=== PATIENT | female | born 1995 | race Two or more races ===

== ENCOUNTER 2024-01-06 14:51 | Outpatient (AMBR) | payer MEDICAID, SELFPAY | END 2024-01-09 23:59 | disposition home or self-care (01) | LOC: HODLAC 14:51 | DX: Z39.1 Encounter for care and examination of lactating mother (principal) ==

== ENCOUNTER 2024-05-09 14:04 | Outpatient (AMB) | payer MEDICAID, SELFPAY ==
[2024-05-09 14:12] VITALS: BP 131/74; PULSE 97; RESP 18; TEMP 36.3; O2SAT 98; BMI 33.3
--- NOTE | 2024-05-09 14:12 | GSCOFFNT_ITS ---
Vital Signs - [facility] 05/09/24 14:12 Height 1.65 m Height Method Stated Weight 90.804 kg Weight Measurement Method Standing Scale BMI 33.3 BP 131/74 H Blood Pressure Source Automatic Cuff Blood Pressure Location Left Upper Arm Position Sitting Respiration 18 Pulse 97 Pulse Source Monitor Temp 97.3 F Temp Source Temporal Artery Scan Pulse Oximetry (%) 98 Oxygen Delivery Method Room Air Med/Allergies Allergies & Medications Allergies No Known Allergies Allergy (Verified 05/09/24 14:13) Medication Reconciliation prenat.vits,denis,[id number] 1 tab PO QDAY 12/09/23 [History Confirmed 05/09/24] docusate sodium 100 mg capsule (Colace) 100 mg PO BID #60 caps 12/16/23 [Rx Confirmed 05/09/24] ibuprofen 800 mg tablet 800 mg PO Q6H PRN pain #120 tabs 12/16/23 [Rx Confirmed 05/09/24] lanolin 50 % topical ointment 1 applic topical TID PRN skin irritation #15 tubes 12/16/23 [Rx Confirmed 05/09/24] MA Intake Visit Data Collection New Patient or Established: Established Patient (seen at [facility] within 3 years) Seen by Clinical Staff ONLY (RN/MA): No Reason for Visit:: UMBELICAL HERNIA Pain Present Currently: No PCP or OBGYN visit in last 3 months: Yes Hx Now: No Do You Feel Safe at Home: Yes Authorities Contacted: N/A Smoking Status Smoking Status: Never smoker Immunization / Flu Flu Vaccine in the Last 12 Months: No Flu Vaccine Exclusion Criteria: No Exclusion Criteria Past Medical History Past Medical History NEUROLOGIC: Negative Neurological Disorders, Cerebrovascular Accident, Transient Ischemic Attacks (TIA), Dementia, Alzheimer's Disease, Parkinson's Disease, Brain Tumor, Meningitis, Seizures, Epilepsy, Multiple Sclerosis, Cerebral Palsy, Amyotrophic Lateral Sclerosis (ALS/Kelly Gehrig's), Guillain-Sulphur Syndrome, Spina Bifida, Paralysis, Peripheral Neuropathy, Garcias's Palsy, Subdural Hematoma, Migraine, Head Trauma, Spinal Cord Injury or Traumatic Brain Injury CARDIAC: Negative Cardiac Disorders, Myocardial Infarction, Cardiac Arrhythmia, Atrial Fibrillation, Angina, Heart Murmur, Coronary Artery Disease, Atherosclerotic Heart Disease, Peripheral Vascular Disease, Hypercholesterolemia, Aneurysm, Congestive Heart Failure, Congenital Heart Disease, Valvular Heart Disease, Rheumatic Fever, Cardiomyopathy, Edema, Pericarditis, Cellulitis, Deep Vein Thrombosis, Hypertension, Hypotension or Varicose Veins RESPIRATORY: Negative Chronic Obstructive Pulmonary Disease (COPD), Asthma, Bronchitis, Emphysema, Pneumonia, Pulmonary Fibrosis, Cystic Fibrosis, Tuberculosis, Pulmonary Embolism, Pulmonary Edema or Sleep Apnea GASTROINTESTINAL: Negative Gastrointestinal Disorders, Hepatitis, Cirrhosis, Pancreatitis, Celiac Disease, Gall Bladder Disease, Gastrointestinal Bleed, Esophageal Varices, Becker's Esophagus, Colitis, Ulcerative Colitis, Diverticulitis, Diverticulosis, Ulcer, Colorectal Cancer, Irritable Bowel, Crohn's Disease, Obstructive Bowel, Hiatal Hernia, Hemorrhoids, Gastroesophageal Reflux Disease or Obesity GENITOURINARY: Negative Genitourinary Disorders, Renal Disease, Kidney Stones, Polycystic Kidney Disease, Neurogenic Bladder, Inguinal Hernia, Dialysis, Prostate Cancer or Benign Prostatic Hyperplasia REPRODUCTIVE: Positive Previous Pregnancies (x3); Negative Breast Cancer, Endometriosis, Genital Herpes, Gonorrhea, Pelvic Inflammatory Disease, Syphilis, Testicular Cancer or Uterine Prolapse MUSCULOSKELETAL: Negative Muscular Dystrophy, Myasthenia Gravis, Marfan's Syndrome, Bone Cancer, Arthritis, Rheumatoid Arthritis, Osteoporosis, Degenerative Disk Disease, Gout, Scoliosis, Carpal Tunnel Syndrome, Fibromyalgia, Fractures, Degenerative Joint Disease, Osteomyelitis or Poliovirus ENT: Negative Cataracts, Glaucoma, Blind, Retinal Detachment, Macular Degeneration, Ear Infection, Deafness, Head Trauma or Eye Prosthesis ENDOCRINE: Negative Endocrine Disorders, Diabetes Mellitus Type 1, Diabetes Mellitus Type 2, Hypoglycemia, Yoseph's Syndrome, Dariusz's Disease, Hyperthyroidism, Hypothyroidism, Parathyroid Disease, Pituitary Disease, Systemic Lupus Erythematosus, Syndrome of Inappropriate Antidiuretic Hormone (SIADH), Adrenal Disease or Graves' Disease HEMATOLOGIC: Negative Blood Disorders, Anemia, Leukemia, Hemophilia, Thalassemia, Sickle Cell Disease or Clotting Problems PSYCHO/SOCIAL: Negative Psychiatric Problems, Schizophrenia, Recreational Drug Use, Bipolar Disorder, Depression, Anxiety, Behavior Problems, Self-Mutilation, Attention Deficit Disorder, Attention Deficit Hyperactivity Disorder, Depression, Post Traumatic Stress Disorder or Eating Disorder OTHER HISTORY: Positive Hospitalization; Negative Down Syndrome, Autism, Developmental Delay, Shingles, Falls, Blood Transfusions, Blood Transfusion Reaction, Anesthesia Reactions, Organ Orantes splant, Chemotherapy, Radiation Therapy, Hyperbaric Therapy, MRSA, VRSA, Vancomycin-Resistant Enterococci, Human Immunodeficiency Virus (HIV), Chicken Pox, Measles, Mumps, Rubella (Malagasy Measles), Pertussis, Clostridium Difficile, Cancer, Breast Cancer, Cervical Cancer, Colorectal Cancer, Lung Cancer, Ovarian Cancer, Prostate Cancer or Testicular Cancer Family History FAMILY HISTORY: Positive Family Cardiac Disorders (mother- htn) and Family Cancer (mother- breast ca); Negative Family Psychiatric Problems, Family Respiratory Disorders, Family Gastrointestinal Problems, Family Surgery or Family Anesthesia Reaction Surgical History SURGICAL: Negative Cardiac Surgery, Open Heart Surgery, Coronary Artery Bypass Graft, Valve Replacement, Vascular Surgery, Coronary Stent, Cardiac Catheterization, Pacemaker, Angiogram, Auto Implanted Cardiovert Defib, Carotid Endarterectomy, Endocrine Surgery, Thyroidectomy, Ear Surgery, Tympanostomy Tube, Eye Surgery, Nose Surgery, Oral Surgery, Tonsillectomy, Adenoidectomy, Cochlear Implant, Corneal Transplant, Throat Surgery, Abdominal Surgery, Tracheostomy, Gastric Bypass Surgery, Gastrostomy, Bowel Surgery, Nephrectomy, Transurethral Resection, Joint Replacement, Amputation, Open Reduction Internal Fixation, Arthroscopy, Neurologic Surgery, Brain Shunt, Mastectomy, Lumpectomy, Hysterectomy, Tubal Ligation, Section, Vasectomy or Organ Transplant Social History SMOKING STATUS: Smoking status: Never smoker SECOND HAND EXPOSURE: second hand exposure: No ALCOHOL: Alcohol Intake: Never ALCOHOL FREQUENCY: Alcohol Intake Frequency: holidays/special occasions only HOUSING: Housing: Apartment LIVES WITH: Lives With: Children and Significant Other HPI HPI Narrative 28F s/p lap appendectomy 08/2022 for gangrenous appendicitis, who gave 12/2023 here for a symptomatic umbilical hernia. Pt reports she has noted it for some time and it seems to have increased in size, as the area associated with discomfort has increased. Pt has noted episodes of nausea/vomiting related to the hernia as well. She denies any skin changes, has no other complaints PMH: Gangrenous appendicitis PSHx: Lap appendectomy 08/2022 Meds: vitamins Allergies: NKDA Social hx: Nonsmoker ROS Review of Systems Systems Reviewed: All systems reviewed, normal except as documented Objective/Exam General General Appearance: alert, cooperative and well groomed Resp Respiratory exam: Absent respiratory distress Abdominal Abdominal exam: Present soft and hernia (reducible umbilical hernia with no erythema, no fluctuance or tenderness); Absent distention or tenderness Assessment & Plan Diagnosis / Problem List (1) Umbilical hernia: Status: Acute Assessment & Plan: 28F s/p lap appendectomy 08/2022 for gangrenous appendicitis, followed by a healthy and vaginal 12/2023 here for follow up of symptomatic umbilical hernia. I explained that US will be helpful to determine the exact size of the hernia and that depending on the result we can discuss either open repair with mesh or consider referral for laparoscopic repair. Pt expressed understanding and is agreeable to this plan Orders: Orders US abdomen limited Today K42.9 - Umbilical hernia without obstruction or gangrene Office Procedures GNS Level of Care Nursing/Assessment Patient Status: Established Patient Nursing Assessment/Reassesment: Medication Reconciliation, Update PMH in EMR and Vital Signs Coordination of Care: Complex Care and Chronic Disease 1-5, Consent,records obtained, informed consent, Education Simp Pt/Fam, Results/Orders obtained and Staff clarify orders Established Patient Charge Established Patient Point Assignment: 90 Established Patient Point Charge: EP Level 3 (80-115) Patient Portal Questionaires Social History Living Situation History Housing: Apartment Tobacco History Smoking Status: Never smoker Second Hand Smoke Exposure: No Alcohol History Alcohol Intake: Never Alcohol Intake Frequency: holidays/special occasions only Domestic Abuse History Do You Feel Safe at Home: Yes Review of Systems Report any current symptoms Only answer those that you have currently: Past Medical History Past Medical History Have you ever been diagnosed with any of the following: Neurological Problems Cerebrovascular Accident (CVA): No Transient Ischemic Attacks (TIA): No Dementia: No Alzheimer's Disease: No Parkinson's Disease: No Brain Tumor: No Meningitis: No Seizures: No Epilepsy: No Multiple Sclerosis: No Cerebral Palsy: No Amyotrophic Lateral Sclerosis (ALS/Kelly Gehrig's): No Guillain-Sulphur Syndrome: No Spina Bifida: No Paralysis: No Peripheral Neuropathy: No Garcias's Palsy: No Subdural Hematoma: No Migraine: No Head Trauma: No Spinal Cord Injury: No Traumatic Brain Injury: No Cardiology Problems Myocardial Infarction: No Cardiac Arrhythmia: No Atrial Fibrillation: No Angina: No Heart Murmur: No Coronary Artery Disease: No Atherosclerotic Heart Disease: No Peripheral Vascular Disease: No Hypercholesterolemia: No Aneurysm: No Congestive Heart Failure: No Congenital Heart Disease: No Valvular Heart Disease: No Rheumatic Fever: No Cardiomyopathy: No Edema: No Pericarditis: No Cellulitis: No Deep Vein Thrombosis: No Hypertension: No Hypotension: No Varicose Veins: No Respiratory Problems Chronic Obstructive Pulmonary Disease (COPD): No Asthma: No Bronchitis: No Emphysema: No Pneumonia: No Pulmonary Fibrosis: No Tuberculosis: No Pulmonary Embolism: No Pulmonary Edema: No Sleep Apnea: No Stomache/Intestinal Problems Hepatitis: No Cirrhosis: No Pancreatitis: No Celiac Disease: No Gall Bladder Disease: No Gastrointestinal Bleed: No Esophageal Varices: No Becker's Esophagus: No Colitis: No Ulcerative Colitis: No Diverticulitis: No Diverticulosis: No Ulcer: No Colorectal Cancer: No Irritable Bowel: No Crohn's Disease: No Obstructive Bowel: No Hiatal Hernia: No Hemorrhoids: No Gastroesophageal Reflux Disease: No Obesity: No Genital/Urinary Problems Renal Disease: No Kidney Stones: No Polycystic Kidney Disease: No Neurogenic Bladder: No Inguinal Hernia: No Dialysis: No Prostate Cancer: No Benign Prostatic Hyperplasia: No Reproductive Problems Breast Cancer: No Endometriosis: No Genital Herpes: No Gonorrhea: No Pelvic Inflammatory Disease: No Previous Pregnancies: Yes (x3) Syphilis: No Testicular Cancer: No Uterine Prolapse: No Musculoskeletal Problems Muscular Dystrophy: No Myasthenia Gravis: No Marfan's Syndrome: No Bone Cancer: No Arthritis: No Rheumatoid Arthritis: No Osteoporosis: No Degenerative Disk Disease: No Gout: No Scoliosis: No Carpal Tunnel Syndrome: No Fibromyalgia: No Fractures: No Degenerative Joint Disease: No Osteomyelitis: No Poliovirus: No Head,Eye,Nose,Throat Problems Cataracts: No Glaucoma: No Blind: No Retinal Detachment: No Macular Degeneration: No Chronic Ear Infections: No Deafness: No Eye Prosthesis: No Endocrine Problems Diabetes Mellitus Type 1: No Diabetes Mellitus Type 2: No Hypoglycemia: No Yoseph's Syndrome: No [place]'s Disease: No Hyperthyroidism: No Hypothyroidism: No Parathyroid Disease: No Pituitary Disease: No Systemic Lupus Erythematosus: No Syndrome of Inappropriate Antidiuretic Hormone: No Adrenal Disease: No Graves' Disease: No Blood Problems Anemia: No Leukemia: No Hemophilia: No Thalassemia: No Sickle Cell Disease: No Clotting Problems: No Psychologic Problems Schizophrenia: No Recreational Drug Use: No Bipolar Disorder: No Depression: No Anxiety: No Behavior Problems: No Self-Mutilation: No Attention Deficit Disorder: No Attention Deficit Hyperactivity Disorder: No Depression: No Post Traumatic Stress Disorder: No Eating Disorder: No Other Problems Hospitalization: Yes Down Syndrome: No Autism: No Developmental Delay: No Shingles: No Falls: No Blood Transfusions: No Blood Transfusion Reaction: No Anesthesia Reactions: No Organ Transplant: No Chemotherapy: No Radiation Therapy: No Hyperbaric Therapy: No MRSA: No VRSA: No Vancomycin-Resistant Enterococci: No Human Immunodeficiency Virus (HIV): No Chicken Pox: No Measles: No Mumps: No Rubella (Malagasy Measles): No Pertussis: No Clostridium Difficile: No Cancer: No Cervical Cancer: No Lung Cancer: No Ovarian Cancer: No Surgical History Carotid Endarterectomy: No Coronary Artery Bypass Graft: No Valve Replacement: No Hysterectomy: No Pacemaker: No Thyroidectomy: No
== END 2024-05-09 14:28 | disposition home or self-care (01) ==
LOC: HODSRG 14:04
PROVIDERS: PCP Nurse Practitioner Women's Health; Referring Provider Nurse Practitioner Women's Health; Supervising Provider Surgery; Visit Provider Surgery
DX: K42.9 Umbilical hernia without obstruction or gangrene (principal)
CPT/HCPCS: 99213; G0463

== ENCOUNTER 2024-05-11 09:08 | Outpatient (AMB) | payer MEDICAID, SELFPAY ==
[2024-05-11 09:33] VITALS: BP 107/72; PULSE 89; RESP 16; TEMP 35.7; O2SAT 98; BMI 33.0
--- NOTE | 2024-05-11 09:33 | AMB.GYNCLNOT ---
Vital Signs 05/11/24 09:33 Height 1.65 m Height Method Stated Weight 89.925 kg Weight Measurement Method Standing Scale BMI 33.0 BP 107/72 Blood Pressure Source Automatic Cuff Blood Pressure Location Left Upper Arm Position Sitting Respiration 16 Pulse 89 Pulse Source Monitor Temp 96.3 F L Temp Source Oral Pulse Oximetry (%) 98 Oxygen Delivery Method Room Air Allergies/Home Meds Allergies & Medications Allergies No Known Allergies Allergy (Verified 05/16/24 11:21) Intake Visit Data Collection New Patient or Established: Established Patient (seen at [facility] within 3 years) Reason for Visit:: Positive home test, absence of menstrual periods since giving 5 months ago Seen by Clinical Staff ONLY (RN/MA): No Chief Privacy Officer Required: No Do You Feel Safe at Home: Yes Authorities Contacted: N/A PCP or OBGYN visit in last 3 months: Yes Date of Last PCP or OBGYN visit: 05/09/24 Hx Now: No Are you currently on any form of Control: No Pain Present Currently: No Pain Scale Used: Wei-Iqbal/Numerical Pain scale:: 0 Smoking Status Smoking Status: Never smoker 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 1. Little interest or pleasure in doing things: not at all 2. Feeling down, depressed, or hopeless: not at all Total score: 0 PHQ-9 3. Trouble falling or staying asleep, or sleeping too much: Not at all 4. Feeling tired or having little energy: Not at all 5. Poor appetite or overeating: Not at all 6. Feeling bad about yourself - or that you are a failure or have let yourself or your family down: Not at all 7. Trouble concentrating on things, such as reading the newspaper or watching television: Not at all 8. Moving or speaking so slowly that other people could have noticed? - Or the opposite - being so fidgety or restless that you have been moving around a lot more than usual: not at all 9. Thoughts that you would be better off or of hurting yourself in some way: Not at all Total score: 0 If you checked off any problems, how difficult have these problems made it for you to do your work, take care of things at home, or get along with other people?: not difficult at all Source: Developed by Drs. Urban Gardner, Julianne Jett, Jacob Lucero and colleagues, with an educational bruce from [employer]. 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 at Home: Yes Past Medical History Past Medical History Have you ever been diagnosed with any of the following: Neurological Problems Cerebrovascular Accident (CVA): No Transient Ischemic Attacks (TIA): No Dementia: No Alzheimer's Disease: No Parkinson's Disease: No Brain Tumor: No Meningitis: No Seizures: No Epilepsy: No Multiple Sclerosis: No Cerebral Palsy: No Amyotrophic Lateral Sclerosis (ALS/Kelly Gehrig's): No Guillain-[place] Syndrome: No Spina Bifida: No Paralysis: No Peripheral Neuropathy: No Garcias's Palsy: No Subdural Hematoma: No Migraine: No Head Trauma: No Spinal Cord Injury: No Traumatic Brain Injury: No Cardiology Problems Myocardial Infarction: No Cardiac Arrhythmia: No Atrial Fibrillation: No Angina: No Heart Murmur: No Coronary Artery Disease: No Atherosclerotic Heart Disease: No Peripheral Vascular Disease: No Hypercholesterolemia: No Aneurysm: No Congestive Heart Failure: No Congenital Heart Disease: No Valvular Heart Disease: No Rheumatic Fever: No Cardiomyopathy: No Edema: No Pericarditis: No Cellulitis: No Deep Vein Thrombosis: No Hypertension: No Hypotension: No Varicose Veins: No Respiratory Problems Chronic Obstructive Pulmonary Disease (COPD): No Asthma: No Bronchitis: No Emphysema: No Pneumonia: No Pulmonary Fibrosis: No Tuberculosis: No Pulmonary Embolism: No Pulmonary Edema: No Sleep Apnea: No Stomache/Intestinal Problems Hepatitis: No Cirrhosis: No Pancreatitis: No Celiac Disease: No Gall Bladder Disease: No Gastrointestinal Bleed: No Esophageal Varices: No Becker's Esophagus: No Colitis: No Ulcerative Colitis: No Diverticulitis: No Diverticulosis: No Ulcer: No Colorectal Cancer: No Irritable Bowel: No Crohn's Disease: No Obstructive Bowel: No Hiatal Hernia: No Hemorrhoids: No Gastroesophageal Reflux Disease: No Obesity: No Genital/Urinary Problems Renal Disease: No Kidney Stones: No Polycystic Kidney Disease: No Neurogenic Bladder: No Inguinal Hernia: No Dialysis: No Prostate Cancer: No Benign Prostatic Hyperplasia: No Reproductive Problems Breast Cancer: No Endometriosis: No Genital Herpes: No Gonorrhea: No Pelvic Inflammatory Disease: No Previous Pregnancies: Yes (x3) Syphilis: No Testicular Cancer: No Uterine Prolapse: No Musculoskeletal Problems Muscular Dystrophy: No Myasthenia Gravis: No Marfan's Syndrome: No Bone Cancer: No Arthritis: No Rheumatoid Arthritis: No Osteoporosis: No Degenerative Disk Disease: No Gout: No Scoliosis: No Carpal Tunnel Syndrome: No Fibromyalgia: No Fractures: No Degenerative Joint Disease: No Osteomyelitis: No Poliovirus: No Head,Eye,Nose,Throat Problems Cataracts: No Glaucoma: No Blind: No Retinal Detachment: No Macular Degeneration: No Chronic Ear Infections: No Deafness: No Eye Prosthesis: No Endocrine Problems Diabetes Mellitus Type 1: No Diabetes Mellitus Type 2: No Hypoglycemia: No Yoseph's Syndrome: No [place]'s Disease: No Hyperthyroidism: No Hypothyroidism: No Parathyroid Disease: No Pituitary Disease: No Systemic Lupus Erythematosus: No Syndrome of Inappropriate Antidiuretic Hormone: No Adrenal Disease: No Graves' Disease: No Blood Problems Anemia: No Leukemia: No Hemophilia: No Thalassemia: No Sickle Cell Disease: No Clotting Problems: No Psychologic Problems Schizophrenia: No Recreational Drug Use: No Bipolar Disorder: No Depression: No Anxiety: No Behavior Problems: No Self-Mutilation: No Attention Deficit Disorder: No Attention Deficit Hyperactivity Disorder: No Depression: No Post Traumatic Stress Disorder: No Eating Disorder: No Other Problems Hospitalization: Yes Down Syndrome: No Autism: No Developmental Delay: No Shingles: No Falls: No Blood Transfusions: No Blood Transfusion Reaction: No Anesthesia Reactions: No Organ Transplant: No Chemotherapy: No Radiation Therapy: No Hyperbaric Therapy: No MRSA: No VRSA: No Vancomycin-Resistant Enterococci: No Human Immunodeficiency Virus (HIV): No Chicken Pox: No Measles: No Mumps: No Rubella ([place] Measles): No Pertussis: No Clostridium Difficile: No Cancer: No Cervical Cancer: No Lung Cancer: No Ovarian Cancer: No Surgical History Carotid Endarterectomy: No Coronary Artery Bypass Graft: No Valve Replacement: No Hysterectomy: No Pacemaker: No Thyroidectomy: No History of Present Illness [facility] Narrative Tasha Gonzalez, a mother of a 5-month-old , presents for evaluation of a possible . She reports having a positive home test and has not had a menstrual period since giving to her baby approximately 5 months ago. The patient states she is currently her 5-month-old child. She mentions that her baby has been really buzzy in the past few days, which may be affecting her sleep. Tasha has not returned to work since giving . She denies having any nightmares. No other symptoms or complaints are reported by the patient during this visit. Medications and Supplements - vitamins Review of Systems Genitourinary: Negative for menstrual periods. Review of Systems Review of Systems Systems Reviewed: All systems reviewed, normal except as documented Exam General General Appearance: alert, in no apparent distress and healthy appearing Head Head exam: atraumatic Neck Neck exam: Present normal inspection and trachea midline Chest Chest inspection: Present normal inspection and symmetric chest wall rise External exam: Present normal external exam; Absent tenderness Neuro Neurological exam: Present oriented X3 Psych Psychiatric exam: Present normal affect and normal mood Results Objective Imaging: Ultrasound: No visible gestational sac. Uterus visualized. Assessment & Plan Diagnosis / Problem List (1) Encounter for test, result positive: Status: Acute (2) Encounter for care of lactating mother: Status: Acute Plan Tasha Gonzalez, mother of a 5-month-old, presents with a positive home test and amenorrhea since giving . Suspected Early Assessment: Patient reports a positive home test and amenorrhea for 5 months since giving . Ultrasound examination revealed no visible gestational sac, only a possible shadow that could be a blood clot or early sac. Given the patient is , there is a possibility of residual hCG from the previous or a new early . Further testing is required to confirm status. Plan: - Perform two serial quantitative hCG tests: - First test today - Second test in 48 hours (Thursday) - Review results on Thursday - Advise patient to take vitamins and treat as a positive until confirmed - Recommend considering weaning off if is confirmed - Schedule follow-up appointment for Thursday to discuss results Office Procedures OB Clinic LOC & Office Proc's Nursing/Assessment Patient Status: Established Patient OB Clinic Nursing Assessment: BP Monitoring, Medication Reconciliation, Update PMH in EMR and Vital Signs OB Clinic Coordination of Care: Consent,records obtained, informed consent, Education Simp Pt/Fam, Lab and Imaging orders and Staff clarify orders Established Patient Charge Established Patient Point Assignment: 90 Established Patient Point Charge: EP Level 3 (80-115) Bedside Ultrasounds US Transabdominal <14 weeks at bedside: Yes
== END 2024-05-11 09:37 | disposition home or self-care (01) ==
LOC: HODSOBC 09:08
PROVIDERS: PCP Obstetrics & Gynecology; Referring Provider Obstetrics & Gynecology; Supervising Provider Obstetrics & Gynecology; Visit Provider Obstetrics & Gynecology
DX: Z39.1 Encounter for care and examination of lactating mother (principal); Z32.01 Encounter for pregnancy test, result positive
CPT/HCPCS: 76801; 99213; G0463

== ENCOUNTER 2024-05-16 11:04 | Outpatient (AMB) | payer MEDICAID, SELFPAY ==
[2024-05-16 11:20] VITALS: BP 123/76; PULSE 92; RESP 18; TEMP 36; O2SAT 98; BMI 34.0
--- NOTE | 2024-05-16 11:20 | AMB.GYNCLNOT ---
Vital Signs 05/16/24 11:20 Height 1.65 m Height Method Stated Weight 92.703 kg Weight Measurement Method Standing Scale BMI 34.0 BP 123/76 Blood Pressure Source Automatic Cuff Blood Pressure Location Left Upper Arm Position Sitting Respiration 18 Pulse 92 Pulse Source Monitor Temp 96.8 F Temp Source Oral Pulse Oximetry (%) 98 Oxygen Delivery Method Room Air Allergies/Home Meds Allergies & Medications Allergies No Known Allergies Allergy (Verified 05/16/24 11:21) Intake Visit Data Collection New Patient or Established: Established Patient (seen at [facility] within 3 years) Reason for Visit:: Lab Results Seen by Clinical Staff ONLY (RN/MA): No Mussel Opener Required: No Do You Feel Safe at Home: Yes Authorities Contacted: N/A PCP or OBGYN visit in last 3 months: Yes Date of Last PCP or OBGYN visit: 05/11/24 Hx Now: Yes Are you currently on any form of Control: No Pain Present Currently: No Pain Scale Used: Wei-Iqbal/Numerical Pain scale:: 0 Smoking Status Smoking Status: Never smoker Questionnaires Covid-19 Vaccine Questionnaire Has patient been vacinated for Covid-19 Have you been vacinated for Covid-19: Yes PHQ-9 PHQ-2 Over the last 2 weeks, how often have you been bothered by any of the following problems? 1. Little interest or pleasure in doing things: not at all 2. Feeling down, depressed, or hopeless: not at all Total score: 0 PHQ-9 3. Trouble falling or staying asleep, or sleeping too much: Not at all 4. Feeling tired or having little energy: Not at all 5. Poor appetite or overeating: Not at all 6. Feeling bad about yourself - or that you are a failure or have let yourself or your family down: Not at all 7. Trouble concentrating on things, such as reading the newspaper or watching television: Not at all 8. Moving or speaking so slowly that other people could have noticed? - Or the opposite - being so fidgety or restless that you have been moving around a lot more than usual: not at all 9. Thoughts that you would be better off or of hurting yourself in some way: Not at all Total score: 0 If you checked off any problems, how difficult have these problems made it for you to do your work, take care of things at home, or get along with other people?: not difficult at all Source: Developed by Drs. Urban Gardner, Julianne Jett, Jacob Lucero and colleagues, with an educational bruce from [employer]. Depression screen completed yes Social History Living Situation History Lives With: Family Housing: Apartment Tobacco History Smoking Status: Never smoker Second Hand Smoke Exposure: No Alcohol History Alcohol Intake: Never Alcohol Intake Frequency: holidays/special occasions only Domestic Abuse History Do You Feel Safe at Home: Yes Past Medical History Past Medical History Have you ever been diagnosed with any of the following: Neurological Problems Cerebrovascular Accident (CVA): No Transient Ischemic Attacks (TIA): No Dementia: No Alzheimer's Disease: No Parkinson's Disease: No Brain Tumor: No Meningitis: No Seizures: No Epilepsy: No Multiple Sclerosis: No Cerebral Palsy: No Amyotrophic Lateral Sclerosis (ALS/Kelly Gehrig's): No Guillain-Mont[place] Syndrome: No Spina Bifida: No Paralysis: No Peripheral Neuropathy: No Garcias's Palsy: No Subdural Hematoma: No Migraine: No Head Trauma: No Spinal Cord Injury: No Traumatic Brain Injury: No Cardiology Problems Myocardial Infarction: No Cardiac Arrhythmia: No Atrial Fibrillation: No Angina: No Heart Murmur: No Coronary Artery Disease: No Atherosclerotic Heart Disease: No Peripheral Vascular Disease: No Hypercholesterolemia: No Aneurysm: No Congestive Heart Failure: No Congenital Heart Disease: No Valvular Heart Disease: No Rheumatic Fever: No Cardiomyopathy: No Edema: No Pericarditis: No Cellulitis: No Deep Vein Thrombosis: No Hypertension: No Hypotension: No Varicose Veins: No Respiratory Problems Chronic Obstructive Pulmonary Disease (COPD): No Asthma: No Bronchitis: No Emphysema: No Pneumonia: No Pulmonary Fibrosis: No Tuberculosis: No Pulmonary Embolism: No Pulmonary Edema: No Sleep Apnea: No Stomache/Intestinal Problems Hepatitis: No Cirrhosis: No Pancreatitis: No Celiac Disease: No Gall Bladder Disease: No Gastrointestinal Bleed: No Esophageal Varices: No Becker's Esophagus: No Colitis: No Ulcerative Colitis: No Diverticulitis: No Diverticulosis: No Ulcer: No Colorectal Cancer: No Irritable Bowel: No Crohn's Disease: No Obstructive Bowel: No Hiatal Hernia: No Hemorrhoids: No Gastroesophageal Reflux Disease: No Obesity: No Genital/Urinary Problems Renal Disease: No Kidney Stones: No Polycystic Kidney Disease: No Neurogenic Bladder: No Inguinal Hernia: No Dialysis: No Reproductive Problems Breast Cancer: No Endometriosis: No Genital Herpes: No Gonorrhea: No Pelvic Inflammatory Disease: No Previous Pregnancies: Yes (x3) Syphilis: No Uterine Prolapse: No Musculoskeletal Problems Muscular Dystrophy: No Myasthenia Gravis: No Marfan's Syndrome: No Bone Cancer: No Arthritis: No Rheumatoid Arthritis: No Osteoporosis: No Degenerative Disk Disease: No Gout: No Scoliosis: No Carpal Tunnel Syndrome: No Fibromyalgia: No Fractures: No Degenerative Joint Disease: No Osteomyelitis: No Poliovirus: No Head,Eye,Nose,Throat Problems Cataracts: No Glaucoma: No Blind: No Retinal Detachment: No Macular Degeneration: No Chronic Ear Infections: No Deafness: No Eye Prosthesis: No Endocrine Problems Diabetes Mellitus Type 1: No Diabetes Mellitus Type 2: No Hypoglycemia: No [place]'s Syndrome: No [place]'s Disease: No Hyperthyroidism: No Hypothyroidism: No Parathyroid Disease: No Pituitary Disease: No Systemic Lupus Erythematosus: No Syndrome of Inappropriate Antidiuretic Hormone: No Adrenal Disease: No Graves' Disease: No Blood Problems Anemia: No Leukemia: No Hemophilia: No Thalassemia: No Sickle Cell Disease: No Clotting Problems: No Psychologic Problems Schizophrenia: No Recreational Drug Use: No Bipolar Disorder: No Depression: No Anxiety: No Behavior Problems: No Self-Mutilation: No Attention Deficit Disorder: No Attention Deficit Hyperactivity Disorder: No Depression: No Post Traumatic Stress Disorder: No Eating Disorder: No Other Problems Hospitalization: Yes Down Syndrome: No Autism: No Developmental Delay: No Shingles: No Falls: No Blood Transfusions: No Blood Transfusion Reaction: No Anesthesia Reactions: No Organ Transplant: No Chemotherapy: No Radiation Therapy: No Hyperbaric Therapy: No MRSA: No VRSA: No Vancomycin-Resistant Enterococci: No Human Immunodeficiency Virus (HIV): No Chicken Pox: No Measles: No Mumps: No Rubella (Tongan Measles): No Pertussis: No Clostridium Difficile: No Cancer: No Cervical Cancer: No Lung Cancer: No Ovarian Cancer: No Surgical History Carotid Endarterectomy: No Coronary Artery Bypass Graft: No Valve Replacement: No Hysterectomy: No Pacemaker: No Thyroidectomy: No History of Present Illness HPI Narrative Chief Complaint Follow-up for serum HCG results, unknown last menstrual period History of Present Illness Tasha Gonzalez presents for a one-week follow-up and review of serum HCG results. She has an unknown last menstrual period as she is currently . Based on the HCG results, the patient is estimated to be in the 5-6 week gestation window. Tasha reports that she has already stopped and is now only giving her child frozen breast milk. She mentions that her child is tolerating this change well. Medications and Supplements - vitamin Laboratory, Imaging, and Diagnostic Test Results - Date: 05/11/2024 - Serum HC - Date: 05/13/2024 - Serum HC.5 Review of Systems Review of Systems Systems Reviewed: All systems reviewed, normal except as documented Exam General Limitations: no limitations General Appearance: alert, in no apparent distress, comfortable, cooperative, healthy appearing, well developed and well groomed Head Head exam: atraumatic, normocephalic and normal inspection Chest Chest inspection: Present normal inspection and symmetric chest wall rise Abdominal Abdominal exam: Present soft and normal bowel sounds Psych Psychiatric exam: Present normal affect and normal mood Skin Skin exam: Present warm, dry, intact and normal color Assessment & Plan Diagnosis / Problem List (1) Umbilical hernia: Status: Acute (2) Encounter for test, result positive: Status: Acute Plan Tasha Gonzalez presents for one-week follow-up and review of serum HCG results, with unknown last menstrual period due to current status. Early Assessment: Patient's initial HCG on 05/11/2024 was 139, with a repeat HCG 48 hours later on 05/13/2024 of 390. The appropriate doubling of HCG levels indicates a viable early , estimated to be in the 5-6 week gestation window based on these results. The current HCG level is below the discriminatory zone of 3000, which is typically when a heartbeat becomes visible on ultrasound. Plan: - Return in 2 weeks for viability and dating ultrasound - Start vitamins - Follow precautions - Continue weaning off - Anticipate ability to visualize heartbeat in approximately 2 weeks when HCG levels are expected to reach around 3000 Office Procedures OB Clinic LOC & Office Proc's Nursing/Assessment Patient Status: Established Patient OB Clinic Nursing Assessment: BP Monitoring, Medication Reconciliation, Update PMH in EMR and Vital Signs OB Clinic Coordination of Care: Consent,records obtained, informed consent, Education Simp Pt/Fam, Results/Orders obtained and Staff clarify orders Established Patient Charge Established Patient Point Assignment: 80 Established Patient Point Charge: EP Level 3 (80-115)
== END 2024-05-16 11:28 | disposition home or self-care (01) ==
LOC: HODSOBC 11:04
PROVIDERS: PCP Obstetrics & Gynecology; Referring Provider Obstetrics & Gynecology; Supervising Provider Obstetrics & Gynecology; Visit Provider Obstetrics & Gynecology
DX: O99.611 Diseases of the digestive system complicating pregnancy, first trimester (principal); K42.9 Umbilical hernia without obstruction or gangrene; Z3A.01 Less than 8 weeks gestation of pregnancy
CPT/HCPCS: 99213; G0463

== ENCOUNTER 2024-06-14 08:35 | Outpatient (AMB) | payer MEDICAID, SELFPAY ==
--- NOTE | 2024-06-14 08:53 | AMB.OBINITIA ---
Vital Signs 06/14/24 09:00 Height 1.65 m Height Method Stated Weight 93.213 kg Weight Measurement Method Standing Scale BMI 34.2 BP 115/74 Blood Pressure Source Automatic Cuff Blood Pressure Location Left Upper Arm Position Sitting Respiration 18 Pulse 83 Pulse Source Monitor Temp 97.2 F Temp Source Oral Pulse Oximetry (%) 98 Oxygen Delivery Method Room Air Allergies/Home Meds Allergies & Medications Allergies No Known Allergies Allergy (Verified 06/14/24 08:53) Medication Reconciliation No Known Home Medications 06/14/24 [History Confirmed 06/14/24] Intake Visit Data Collection New Patient or Established: Established Patient (seen at [facility] within 3 years) Reason for Visit:: New OB Seen by Clinical Staff ONLY (RN/MA): No Sales Management Intern Required: No Do You Feel Safe at Home: Yes Authorities Contacted: N/A PCP or OBGYN visit in last 3 months: Yes Date of Last PCP or OBGYN visit: 05/11/24 Hx Now: Yes Are you currently on any form of Control: No Pain Present Currently: No Pain Scale Used: Wei-Iqbal/Numerical Pain scale:: 0 Smoking Status Smoking Status: Never smoker Questionnaires Covid-19 Vaccine Questionnaire Has patient been vacinated for Covid-19 Have you been vacinated for Covid-19: Yes PHQ-9 PHQ-2 Over the last 2 weeks, how often have you been bothered by any of the following problems? 1. Little interest or pleasure in doing things: not at all 2. Feeling down, depressed, or hopeless: not at all Total score: 0 PHQ-9 3. Trouble falling or staying asleep, or sleeping too much: Not at all 4. Feeling tired or having little energy: Not at all 5. Poor appetite or overeating: Not at all 6. Feeling bad about yourself - or that you are a failure or have let yourself or your family down: Not at all 7. Trouble concentrating on things, such as reading the newspaper or watching television: Not at all 8. Moving or speaking so slowly that other people could have noticed? - Or the opposite - being so fidgety or restless that you have been moving around a lot more than usual: not at all 9. Thoughts that you would be better off or of hurting yourself in some way: Not at all Total score: 0 If you checked off any problems, how difficult have these problems made it for you to do your work, take care of things at home, or get along with other people?: not difficult at all Source: Developed by Drs. Urban Gardner, Julianne Jett, Jacob Lucero and colleagues, with an educational bruce from [employer]. 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 at Home: Yes Past Medical History Past Medical History Have you ever been diagnosed with any of the following: Neurological Problems Cerebrovascular Accident (CVA): No Transient Ischemic Attacks (TIA): No Dementia: No Alzheimer's Disease: No Parkinson's Disease: No Brain Tumor: No Meningitis: No Seizures: No Epilepsy: No Multiple Sclerosis: No Cerebral Palsy: No Amyotrophic Lateral Sclerosis (ALS/Kelly Gehrig's): No Guillain-Golf Syndrome: No Spina Bifida: No Paralysis: No Peripheral Neuropathy: No Garcias's Palsy: No Subdural Hematoma: No Migraine: No Head Trauma: No Spinal Cord Injury: No Traumatic Brain Injury: No Cardiology Problems Myocardial Infarction: No Cardiac Arrhythmia: No Atrial Fibrillation: No Angina: No Heart Murmur: No Coronary Artery Disease: No Atherosclerotic Heart Disease: No Peripheral Vascular Disease: No Hypercholesterolemia: No Aneurysm: No Congestive Heart Failure: No Congenital Heart Disease: No Valvular Heart Disease: No Rheumatic Fever: No Cardiomyopathy: No Edema: No Pericarditis: No Cellulitis: No Deep Vein Thrombosis: No Hypertension: No Hypotension: No Varicose Veins: No Respiratory Problems Chronic Obstructive Pulmonary Disease (COPD): No Asthma: No Bronchitis: No Emphysema: No Pneumonia: No Pulmonary Fibrosis: No Tuberculosis: No Pulmonary Embolism: No Pulmonary Edema: No Sleep Apnea: No Stomache/Intestinal Problems Hepatitis: No Cirrhosis: No Pancreatitis: No Celiac Disease: No Gall Bladder Disease: No Gastrointestinal Bleed: No Esophageal Varices: No Becker's Esophagus: No Colitis: No Ulcerative Colitis: No Diverticulitis: No Diverticulosis: No Ulcer: No Colorectal Cancer: No Irritable Bowel: No Crohn's Disease: No Obstructive Bowel: No Hiatal Hernia: No Hemorrhoids: No Gastroesophageal Reflux Disease: No Obesity: No Genital/Urinary Problems Renal Disease: No Kidney Stones: No Polycystic Kidney Disease: No Neurogenic Bladder: No Inguinal Hernia: No Dialysis: No Reproductive Problems Breast Cancer: No Endometriosis: No Genital Herpes: No Gonorrhea: No Pelvic Inflammatory Disease: No Previous Pregnancies: Yes (x3) Syphilis: No Uterine Prolapse: No Musculoskeletal Problems Muscular Dystrophy: No Myasthenia Gravis: No Marfan's Syndrome: No Bone Cancer: No Arthritis: No Rheumatoid Arthritis: No Osteoporosis: No Degenerative Disk Disease: No Gout: No Scoliosis: No Carpal Tunnel Syndrome: No Fibromyalgia: No Fractures: No Degenerative Joint Disease: No Osteomyelitis: No Poliovirus: No Head,Eye,Nose,Throat Problems Cataracts: No Glaucoma: No Blind: No Retinal Detachment: No Macular Degeneration: No Chronic Ear Infections: No Deafness: No Eye Prosthesis: No Endocrine Problems Diabetes Mellitus Type 1: No Diabetes Mellitus Type 2: No Hypoglycemia: No [place]'s Syndrome: No [place]'s Disease: No Hyperthyroidism: No Hypothyroidism: No Parathyroid Disease: No Pituitary Disease: No Systemic Lupus Erythematosus: No Syndrome of Inappropriate Antidiuretic Hormone: No Adrenal Disease: No Graves' Disease: No Blood Problems Anemia: No Leukemia: No Hemophilia: No Thalassemia: No Sickle Cell Disease: No Clotting Problems: No Psychologic Problems Schizophrenia: No Recreational Drug Use: No Bipolar Disorder: No Depression: No Anxiety: No Behavior Problems: No Self-Mutilation: No Attention Deficit Disorder: No Attention Deficit Hyperactivity Disorder: No Depression: No Post Traumatic Stress Disorder: No Eating Disorder: No Other Problems Hospitalization: Yes Down Syndrome: No Autism: No Developmental Delay: No Shingles: No Falls: No Blood Transfusions: No Blood Transfusion Reaction: No Anesthesia Reactions: No Organ Transplant: No Chemotherapy: No Radiation Therapy: No Hyperbaric Therapy: No MRSA: No VRSA: No Vancomycin-Resistant Enterococci: No Human Immunodeficiency Virus (HIV): No Chicken Pox: No Measles: No Mumps: No Rubella (Turkish Measles): No Pertussis: No Clostridium Difficile: No Cancer: No Cervical Cancer: No Lung Cancer: No Ovarian Cancer: No Surgical History Carotid Endarterectomy: No Coronary Artery Bypass Graft: No Valve Replacement: No Hysterectomy: No Pacemaker: No Thyroidectomy: No History of Present Illness YAO Cordova presents for a visit with a history of short interval and unknown last menstrual period due to her last infant. She reports experiencing a little bit of nausea but is taking vitamins. The patient's was confirmed via ultrasound, which dated the at 9 weeks and 1 day. Tasha mentions that she had calculated her timeline based on when she had her previous child, which aligns with the ultrasound findings. She is managing her nausea without additional medication and continues to take her vitamins as prescribed. No cramping/ bleeding No nausea/ vomiting OB Ultrasound OB Ultrasound Ultrasound technique: transabdominal Gestational sac assessment: Presence, location, size, shape: - Ultrasound (06/14/2024): - Gestational age: 9 weeks and 1 day - heartbeat: 173 bpm (noted as normal) - sac: Described as nice and round - Placenta: Noted as looks good OB Initial Visit Menstrual History Menstrual reliability: unknown Flow: normal Menstrual regularity: regular Monthly: Yes Age at menarche: 14 On control pills at conception: No OB History : 5 Para: 4 Hx # Pregnancies: 0 Hx Total # of Abortions (Spontaneous & Elective): 0 # of Living Children: 3 Delivery History 1st : Child's name: JOSE date: 07/14/16 sex: male Delivery type: vaginal History of depression before or after : No 2nd : Child's name: SUMAN date: 01/02/18 sex: female Delivery type: vaginal History of depression before or after : No 3rd : Child's name: MAIRA date: 04/04/22 sex: male Delivery type: vaginal History of depression before or after : No Additional comments: BABY WAS A SURROGECY 4th : Child's name: BILL date: 12/16/23 sex: female Delivery type: vaginal History of depression before or after : No Infection History & Risk Evaluation History of STDs: none HIV risk evaluation: low risk Hepatitis B risk evaluation: low risk Patient or partner has history of Genital Herpes: No Varicella/chicken pox status: immunized Genetic Screening & History Genetic Screening/Teratology Counseling - Includes patient, baby's father, or anyone in either family with: 1. Patient's age 35 years or older as of estimated date of delivery: No 2. Thalassemia (Maltese, Tunisian, Mediterranean, or Background); MCV less than 80: No 3. Neural Tube Defect (Meningomyelocele, Spina Bifida, or Anencephaly): No 4. Congenital Heart Defect: No 5. Down Syndrome: No 6. Jimbo-Sachs (Ashkenazi Yazdanism, Cajun, [place]): No 7. Mariel Disease (Ashkenazi Yazdanism): No 8. Familial Dysautonomia (Ashkenazi Yazdanism): No 9. Sickle Cell Disease or Trait (): No 10. Hemophilia or other blood disorders: No 11. Muscular Dystrophy: No 12. Cystic Fibrosis: No 13. [place]'s Chorea: No 14. Mental Retardation/Autism: No 15. Other inherited genetic or chromosomal disorder: No 16. Maternal Metabolic Disorder (EG,TYPE 1 Diabetes, PKU): No 17. Patient or baby's father had a child with defects not listed above: No 18. Recurrent loss or a stillbirth: No 19. Medications (including supplements, vitamins, herbs or otc drugs)/illicit/recreational drugs/alcohol since last menstrual period: No 20. Any other: No Infection History 1. Live with someone with TB or exposed to TB: No 2. Rash or viral illness since last menstrual period: No 3. Hepatitis B,C: No Other (see comments) Source: [employer] Assessment & Plan Diagnosis / Problem List (1) Supervision of high risk , unspecified, first trimester: Status: Acute Plan Tasha Gonzalez presents for a visit with a history of short interval and unknown last menstrual period due to her last . Intrauterine Assessment: Ultrasound examination reveals a viable intrauterine at 9 weeks and 1 day gestation. The heartbeat is present and measured at 173 bpm, which is within normal range. The sac appears round and well-formed, and the placenta is visualized and appears normal. Based on the ultrasound findings, the estimated due date is calculated as January 16, with a last menstrual period (LMP) of April 11 and estimated conception date around April 25. Plan: - Complete panel including genetics with gender analysis - Schedule nuchal translucency ultrasound at [facility] - Schedule 20-week anatomy ultrasound - Continue vitamins - Follow-up visits every 4 weeks - Patient to complete lab work today or tomorrow - Review lab results by next Thursday Nausea of Assessment: Patient reports experiencing a little bit of nausea during . This is a common symptom in early and does not appear to be severe at this time. Plan: - Offered medication for nausea, but patient declined as she is doing okay - Continue to monitor symptoms at future visits Office Procedures OB Clinic LOC & Office Proc's Nursing/Assessment Patient Status: Established Patient OB Clinic Nursing Assessment: BP Monitoring, Medication Reconciliation, Update PMH in EMR and Vital Signs OB Clinic Coordination of Care: Consent,records obtained, informed consent, Lab and Imaging orders, Results/Orders obtained and Staff clarify orders Established Patient Charge Established Patient Point Assignment: 80 Established Patient Point Charge: EP Level 3 (80-115) Bedside Ultrasounds US Transabdominal <14 weeks at bedside: Yes
[2024-06-14 09:00] VITALS: BP 115/74; PULSE 83; RESP 18; TEMP 36.2; O2SAT 98; BMI 34.2
== END 2024-06-14 09:05 | disposition home or self-care (01) ==
LOC: HODSOBC 08:35
PROVIDERS: PCP Obstetrics & Gynecology; Referring Provider Obstetrics & Gynecology; Supervising Provider Obstetrics & Gynecology; Visit Provider Obstetrics & Gynecology
DX: O09.91 Supervision of high risk pregnancy, unspecified, first trimester (principal); Z3A.09 9 weeks gestation of pregnancy
CPT/HCPCS: 76801; 99213; G0463

== ENCOUNTER 2024-07-12 09:02 | Outpatient (AMB) | payer MEDICAID, SELFPAY ==
[2024-07-12 09:26] VITALS: BP 123/74; PULSE 82; RESP 18; TEMP 36.2; O2SAT 98; BMI 34.0
--- NOTE | 2024-07-12 09:26 | AMB.OBVISIT ---
Vital Signs 07/12/24 09:26 Height 1.65 m Height Method Stated Weight 92.646 kg Weight Measurement Method Standing Scale BMI 34.0 BP 123/74 Blood Pressure Source Automatic Cuff Blood Pressure Location Left Upper Arm Position Sitting Respiration 18 Pulse 82 Pulse Source Monitor Temp 97.2 F Temp Source Oral Pulse Oximetry (%) 98 Oxygen Delivery Method Room Air Allergies/Home Meds Allergies & Medications Allergies No Known Allergies Allergy (Verified 07/12/24 09:27) Medication Reconciliation ondansetron 4 mg disintegrating tablet 4 mg PO Q6H PRN nausea and vomiting 30 days #120 tabs 07/12/24 [Rx] Intake Visit Data Collection New Patient or Established: Established Patient (seen at [facility] within 3 years) Reason for Visit:: obc Do You Feel Safe at Home: Yes Authorities Contacted: N/A PCP or OBGYN visit in last 3 months: Yes Date of Last PCP or OBGYN visit: 06/14/24 Hx Now: Yes Are you currently on any form of Control: No Pain Present Currently: No Pain Scale Used: Wei-Iqbal/Numerical Pain scale:: 0 Smoking Status Smoking Status: Never smoker Questionnaires Covid-19 Vaccine Questionnaire Has patient been vacinated for Covid-19 Have you been vacinated for Covid-19: Yes PHQ-9 PHQ-2 Over the last 2 weeks, how often have you been bothered by any of the following problems? 1. Little interest or pleasure in doing things: not at all 2. Feeling down, depressed, or hopeless: not at all Total score: 0 PHQ-9 3. Trouble falling or staying asleep, or sleeping too much: Not at all 4. Feeling tired or having little energy: Not at all 5. Poor appetite or overeating: Not at all 6. Feeling bad about yourself - or that you are a failure or have let yourself or your family down: Not at all 7. Trouble concentrating on things, such as reading the newspaper or watching television: Not at all 8. Moving or speaking so slowly that other people could have noticed? - Or the opposite - being so fidgety or restless that you have been moving around a lot more than usual: not at all 9. Thoughts that you would be better off or of hurting yourself in some way: Not at all Total score: 0 Source: Developed by Drs. Urban Gardner, Julianne Jett, Jacob Lucero and colleagues, with an educational bruce from [employer]. 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 - Patient was last seen on June 14, 2024 for initial visit and labs. - She reports no specific complaints or concerns during this visit. - Patient mentions she is not currently working and will be off until September due to FMLA. - She requests a prescription for Zofran, suggesting possible nausea or vomiting. No contractions/ LOF/VB, reports good FM No HYDE/VC/RUQ/Epig pain - Date: 06/14/2024 - Hepatitis B: Negative - Hepatitis C: Negative - RPR: Non-reactive - Rubella: Immune - Blood group: O positive - Antibody screen: Negative - HIV: Non-reactive - Gonorrhea: Negative - Chlamydia: Negative - CBC: Hemoglobin 13.1 g/dL, Platelets 245 - NIPT: - fraction: 15% - Gender: Consistent with female - Trisomy screening: Negative - Ultrasound: - heartbeat: 146 bpm - Visualized: Head, spinal cord, ribs, heart, hands, umbilical cord, placenta Care OB Visit Log OB Flowsheet Initial Weight: Not Recorded Date <del>?</del> EGA Weight BP Alb Glu CTX Pres Fundal ht FHR Mov Dilation Station Effacement Hx Notes Visit Note 07/12/24 <del>?</del> 13w 1d 92.646 kg 123/74 at 13w1d, presents for routine care. No complaints today. Reports good FM, no CTX/LOF/VB. Denies HYDE, VC, or epigastric pain. Patient is currently off work on FMLA until September. Requests Zofran for nausea. FHR 146 bpm. NIPT returned negative for trisomies, female fetus confirmed. All labs WNL. Plan: Zofran prescribed for nausea, to be picked up at [facility]. Continue vitamins. Referred for anatomy scan at [facility] around 20 weeks. Routine follow-up in 4 weeks. Reviewed warning signs of labor and dietary recommendations to minimize GDM risk. Encouraged hydration, balanced meals, and rest. ANKUR Calculator Estimated Delivery Date Method Current WG Current Estimate 01/16/25 Ultrasound #1 15w 2d Other Estimates 01/16/25 LMP (Uncertain) 15w 2d Exam General General Appearance: alert, in no apparent distress and healthy appearing Head Head exam: atraumatic Neck Neck exam: Present normal inspection and trachea midline Chest Chest inspection: Present normal inspection and symmetric chest wall rise External exam: Present normal external exam; Absent tenderness Neuro Neurological exam: Present oriented X3 Psych Psychiatric exam: Present normal affect and normal mood Office Procedures OB Clinic LOC & Office Proc's Nursing/Assessment Patient Status: Established Patient OB Clinic Nursing Assessment: Medication Reconciliation, Update PMH in EMR and Vital Signs OB Clinic Coordination of Care: Education Complex Pt/Fam, Consent,records obtained, informed consent, Education Simp Pt/Fam, Lab and Imaging orders and Staff clarify orders Special Needs: Heart tones Established Patient Charge Established Patient Point Assignment: 125 Established Patient Point Charge: EP Level 4 (120-155) Assessment & Plan Diagnosis / Problem List (1) Supervision of high risk , unspecified, first trimester: Status: Acute Plan Problem List - , first trimester - Nausea and vomiting of Assessment - Intrauterine at 13 weeks 1 day gestation - heart rate 146 bpm - NIPT results: fraction 15%, female gender, negative trisomy screening - labs within normal limits: - Hepatitis B and C negative - RPR non-reactive - Rubella immune - Blood group O positive - Antibody screen negative - HIV non-reactive - Gonorrhea and chlamydia negative - Hemoglobin 13.1 - Platelets 245 Plan - Follow-up appointment scheduled in 4 weeks - Referral to [facility] for appointment around 20 weeks gestation - Zofran prescribed for nausea, to be filled at [facility] pharmacy - Continue vitamins Educated the patient on labor signs, including regular contractions, lower back pain, and changes in vaginal discharge. Advised avoiding heavy lifting and getting adequate rest. Instructed to contact the office immediately if any signs occur. Discussed the importance of a balanced diet rich in folic acid, iron, and calcium, and provided a list of recommended and to-avoid foods. Emphasized avoiding high-sugar foods to reduce gestational diabetes risk. Encouraged hydration and frequent, small meals for energy..
== END 2024-07-12 09:49 | disposition home or self-care (01) ==
LOC: HODSOBC 09:02
PROVIDERS: PCP Obstetrics & Gynecology; Referring Provider Obstetrics & Gynecology; Supervising Provider Obstetrics & Gynecology; Visit Provider Obstetrics & Gynecology
DX: O09.91 Supervision of high risk pregnancy, unspecified, first trimester (principal); Z3A.13 13 weeks gestation of pregnancy; O21.9 Vomiting of pregnancy, unspecified
CPT/HCPCS: 76801; 99214; G0463

== ENCOUNTER 2024-08-09 10:09 | Outpatient (AMB) | payer MEDICAID, SELFPAY ==
[2024-08-09 10:21] VITALS: BP 116/72; PULSE 98; RESP 20; TEMP 36.3; O2SAT 98; BMI 34.4
--- NOTE | 2024-08-09 10:21 | OBCLNT_ITS ---
Vital Signs 08/09/24 10:21 Height 1.65 m Height Method Stated Weight 93.667 kg Weight Measurement Method Standing Scale BMI 34.4 BP 116/72 Blood Pressure Source Automatic Cuff Blood Pressure Location Left Upper Arm Position Sitting Respiration 20 Pulse 98 Pulse Source Monitor Temp 97.4 F Temp Source Oral Pulse Oximetry (%) 98 Oxygen Delivery Method Room Air Allergies/Home Meds Allergies & Medications Allergies No Known Allergies Allergy (Verified 10/11/24 10:37) Medication Reconciliation Unobtainable 09/06/24 [History Confirmed 10/11/24] Intake Visit Data Collection New Patient or Established: Established Patient (seen at [facility] within 3 years) Reason for Visit:: CARE Seen by Clinical Staff ONLY (RN/MA): No 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 1. Little interest or pleasure in doing things: not at all 2. Feeling down, depressed, or hopeless: not at all Total score: 0 PHQ-9 3. Trouble falling or staying asleep, or sleeping too much: Not at all 4. Feeling tired or having little energy: Not at all 5. Poor appetite or overeating: Not at all 6. Feeling bad about yourself - or that you are a failure or have let yourself or your family down: Not at all 7. Trouble concentrating on things, such as reading the newspaper or watching television: Not at all 8. Moving or speaking so slowly that other people could have noticed? - Or the opposite - being so fidgety or restless that you have been moving around a lot more than usual: not at all 9. Thoughts that you would be better off or of hurting yourself in some way: Not at all Total score: 0 Source: Developed by Drs. Urban Gardner, Julianne Jett, Jacob Lucero and colleagues, with an educational bruce from [employer]. 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 Past Medical History: No Hx Neurological Disorders, No Hx Hypothyroidism, No Hx Hyperthyroidism, No Hx Breast Cancer, No Hx Cardiac Disorders, No Hx Hypertension, No Hx Cancer, No Hx Blood Disorders, No Hx Anemia, No Hx Gastrointestinal Disorders, No Hx Renal Disease, No Hx Deep Vein Thrombosis, No Hx Diabetes Mellitus Type 1, No Hx Diabetes Mellitus Type 2, No Hx Tubal Ligation, No Hx Hysterectomy and No Psychiatric Problems Care OB Visit Log OB Flowsheet Initial Weight: Not Recorded Date -?-?-?-?-?-?-?-?-?-?-?-?- EGA Weight BP Alb Glu CTX Pres Fundal ht FHR Mov Dilation Station Effacement Hx Notes Visit Note 07/12/24 -?-?-?-?-?-?-?-?-?-?-?-?- 13w 1d 92.646 kg 123/74 at 13w1d, presents for routine care. No complaints today. Reports good FM, no CTX/LOF/VB. Denies HYDE, VC, or epigastric pain. Patient is currently off work on FMLA until September. Requests Zofran for nausea. FHR 146 bpm. NIPT returned negative for trisomies, female fetus confirmed. All labs WNL. Plan: Zofran prescribed for nausea, to b e picked up at [facility]. Continue vitamins. Referred for anatomy scan at [facility] around 20 weeks. Routine follow-up in 4 weeks. Reviewed warning signs of labor and dietary recommendations to minimize GDM risk. Encouraged hydration, balanced meals, and rest. 08/09/24 -?-?-?-?-?-?-?-?-?-?-?-?- 17w 1d 93.667 kg 116/72 145 Tasha Carlos, ([id number]), presents for routine visit at 17 weeks gestation. Patient denies cramping, nausea, or abdo meli pain. Denies HYDE, VC, and epigastric pain. - Tasha Gonzalez is presenting for a ro utine visit at 17 weeks gesta tion. - She reports no significant issues or c oncerns: - Denies nausea, vomiting, or cramping - Patient states she has been doing pre tty well overall - Recent changes in employment status: - Has not returned to work at the [employer] as initially planned on the 4th - Patient and her partner decided she will be staying at home for now - Medication adherence: - Reports taking vitamins as prescribed Plan: - Complete AFP (alpha-fetoprotein) jack brushg test - Schedule glucose tolerance test at 24 weeks gestation - Continue vitamins - Schedule 20-week anatomy ultrasound at [facility] - Follow-up visit in 4 weeks 09/09/24 -?-?-?-?-?-?-?-?-?-?-?-?- 21w 4d 95.481 kg 119/71 absent unknown 151 active at 21 weeks 4 days gestation presenting for routine care. Patient reports an umbilical hernia causing significant daily pain. heart rate auscultated at 151 bpm, within normal limits. Anatomy scan performed on the at [facility], with results indicating normal anatomy. AFP test was rejected due to prior genetic DNA testing. - Urgent c onsult with Dr. Akins for umbilical hernia evaluation and potential repair - Roselyn to call [place] office to obtain a natomy scan results - Glucose test order provided - Follow up appointment in 4 weeks 10/11/24 -?-?-?-?-?-?-?-?-?-?-?-?- 26w 1d 97.296 kg 124/73 absent unknown 143 active 26w1d with VSD noted on prior scan; FHR 143 bpm, 1hr GTT 102 (normal). Plan: echo and specialist US tomorrow; follow-up in 4 weeks; continue routine care; bring glucose result to appointment. ANKUR Calculator Estimated Delivery Date Method Current WG Current Estimate 01/16/25 Ultrasound #1 26w 6d Other Estimates 01/16/25 LMP (Uncertain) 26w 6d Office Procedures OB Clinic LOC & Office Proc's Nursing/Assessment Patient Status: Established Patient OB Clinic Nursing Assessment: Medication Reconciliation, Update PMH in EMR and Vital Signs OB Clinic Coordination of Care: Complex Care and Chronic Disease 1-5, Cons ent,records obtained, informed consent, Education Simp Pt/Fam, Lab and Imaging orders, Results/Orders obtained and Staff clarify orders Special Needs: Heart tones Established Patient Charge Established Patient Point Assignment: 135 Established Patient Point Charge: EP Level 4 (120-155) Assessment & Plan Diagnosis / Problem List (1) Supervision of high risk , unspecified, second trimester: Status: Acute
== END 2024-08-09 10:35 | disposition home or self-care (01) ==
LOC: HODSOBC 10:09
PROVIDERS: PCP Obstetrics & Gynecology; Referring Provider Obstetrics & Gynecology; Supervising Provider Obstetrics & Gynecology; Visit Provider Obstetrics & Gynecology
DX: O09.92 Supervision of high risk pregnancy, unspecified, second trimester (principal); Z3A.17 17 weeks gestation of pregnancy
CPT/HCPCS: 99214; G0463

== ENCOUNTER → 2024-09-06 | Outpatient (AMB) | payer MEDICAID, SELFPAY ==
[2024-09-06 10:35] VITALS: BP 112/70; PULSE 86; RESP 17; TEMP 36.5; O2SAT 97; BMI 34.9
--- NOTE | 2024-09-06 10:35 | OBCLNT_ITS ---
Vital Signs 09/06/24 10:35 Height 1.65 m Height Method Stated Weight 95.311 kg Weight Measurement Method Standing Scale BMI 34.9 BP 112/70 Blood Pressure Source Automatic Cuff Blood Pressure Location Right Upper Arm Position Sitting Respiration 17 Pulse 86 Pulse Source Monitor Temp 97.7 F Temp Source Temporal Artery Scan Pulse Oximetry (%) 97 Oxygen Delivery Method Room Air Allergies/Home Meds Allergies & Medications Allergies No Known Allergies Allergy (Verified 10/11/24 10:37) Medication Reconciliation Unobtainable 09/06/24 [History Confirmed 10/11/24] Intake Visit Data Collection New Patient or Established: Established Patient (seen at [facility] within 3 years) Reason for Visit:: OBC Seen by Clinical Staff ONLY (RN/MA): No 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 1. Little interest or pleasure in doing things: not at all 2. Feeling down, depressed, or hopeless: not at all Total score: 0 PHQ-9 3. Trouble falling or staying asleep, or sleeping too much: Not at all 4. Feeling tired or having little energy: Not at all 5. Poor appetite or overeating: Not at all 6. Feeling bad about yourself - or that you are a failure or have let yourself or your family down: Not at all 7. Trouble concentrating on things, such as reading the newspaper or watching television: Not at all 8. Moving or speaking so slowly that other people could have noticed? - Or the opposite - being so fidgety or restless that you have been moving around a lot more than usual: not at all 9. Thoughts that you would be better off or of hurting yourself in some way: Not at all Total score: 0 If you checked off any problems, how difficult have these problems made it for you to do your work, take care of things at home, or get along with other people?: not difficult at all Source: Developed by Drs. Urban Gardner, Julianne Jett, Jacob Lucero and colleagues, with an educational bruce from [employer]. 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 Past Medical History: No Hx Neurological Disorders, No Hx Hypothyroidism, No Hx Hyperthyroidism, No Hx Breast Cancer, No Hx Cardiac Disorders, No Hx Hypertension, No Hx Cancer, No Hx Blood Disorders, No Hx Anemia, No Hx Gastrointestinal Disorders, No Hx Renal Disease, No Hx Deep Vein Thrombosis, No Hx Diabetes Mellitus Type 1, No Hx Diabetes Mellitus Type 2, No Hx Tubal Ligation, No Hx Hysterectomy and No Psychiatric Problems Care OB Visit Log OB Flowsheet Initial Weight: Not Recorded Date -?-?-?-?-?-?-?-?-?-?-?-?- EGA Weight BP Alb Glu CTX Pres Fundal ht FHR Mov Dilation Station Effacement Hx Notes Visit Note 07/12/24 -?-?--?-?-?-?-?-?-?-?-?-?- 13w 1d 92.646 kg 123/74 at 13w1d, presents for routine care. No complaints today. Reports good FM, no CTX/LOF/VB. Denies HYDE, VC, or epigastric pain. Patient is currently off work on FMLA until September. Requests Zofran for nausea. FHR 146 bpm. NIPT returned negative for trisomies, female fetus confirmed. All labs WNL. Plan: Zofran prescribed for nausea, to b e picked up at [facility]. Continue vitamins. Referred for anatomy scan at [facility] around 20 weeks. Routine follow-up in 4 weeks. Reviewed warning signs of labor and dietary recommendations to minimize GDM risk. Encouraged hydration, balanced meals, and rest. 08/09/24 -?-?-?-?-?-?-?-?-?-?-?-?- 17w 1d 93.667 kg 116/72 145 Tasha Gonzalez, ([id number]), presents for routine visit at 17 weeks gestation. Patient denies cramping, nausea, or abdo meli pain. Denies HYDE, VC, and epigastric pain. - Tasha Gonzalez is presenting for a [facility] visit at 17 weeks gestation. - She reports no significant issues or c oncerns: - Denies nausea, vomiting, or cramping - Patient states she has been doing pre tty well overall - Recent changes in employment status: - Has not returned to work at the [employer] as initially planned on the - Patient and her partner decided she will be staying at home for now - Medication adherence: - Reports taking vitamins as prescribed Plan: - Complete AFP (alpha-fetoprotein) scree josie test - Schedule glucose tolerance test at 24 weeks gestation - Continue vitamins - Schedule 20-week anatomy ultrasound at [facility] - Follow-up visit in 4 weeks 09/06/24 -?-?-?-?-?-?-?-?-?-?-?-?- 21w 1d 95.311 kg 112/70 155 active No ac complaints. MFM coming up. Return in 4 weeks with 1hr GTT 09/09/24 -?-?-?-?-?-?-?-?-?-?-?-?- 21w 4d 95.481 kg 119/71 absent unknown 151 active at 21 weeks 4 days gestation presenting for routine care. Patient reports an umbilical hernia causing significant daily pain. heart rate auscultated at 151 bpm, within normal limits. Anatomy scan performed on the at [facility], with results indicating normal anatomy. AFP test was rejected due to prior genetic DNA testing. - Urgent c onsult with Dr. Akins for umbilical hernia evaluation and potential repair - Roselyn to call [place] office to obtain a natomy scan results - Glucose test order provided - Follow up appointment in 4 weeks 10/11/24 -?-?-?-?-?-?-?-?-?-?-?-?- 26w 1d 97.296 kg 124/73 absent unknown 143 active 26w1d with VSD noted on prior scan; FHR 143 bpm, 1hr GTT 102 (normal). Plan: echo and specialist US tomorrow; follow-up in 4 weeks; continue routine care; bring glucose result to appointment. ANKUR Calculator Estimated Delivery Date Method Current WG Current Estimate 01/16/25 Ultrasound #1 26w 6d Other Estimates 01/16/25 LMP (Uncertain) 26w 6d Office Procedures OB Clinic LOC & Office Proc's Nursing/Assessment Patient Status: Established Patient OB Clinic Nursing Assessment: Medication Reconciliation, Update PMH in EMR and Vital Signs OB Clinic Coordination of Care: Complex Care and Chronic Disease 1-5, Consent,records obtained, informed consent, Education Simp Pt/Fam and Staff clarify orders Special Needs: Heart tones Established Patient Charge Established Patient Point Assignment: 115 Established Patient Point Charge: EP Level 3 (80-115) Assessment & Plan Diagnosis / Problem List (1) Supervision of high risk , unspecified, second trimester: Status: Acute
== END | disposition home or self-care (01) ==
LOC: HODSOBC 10:22
PROVIDERS: Supervising Provider Obstetrics & Gynecology; Visit Provider Obstetrics & Gynecology
DX: O09.92 Supervision of high risk pregnancy, unspecified, second trimester (principal); Z3A.21 21 weeks gestation of pregnancy
CPT/HCPCS: 99213; G0463

== ENCOUNTER 2024-09-09 10:02 | Outpatient (AMB) | payer MEDICAID, SELFPAY ==
[2024-09-09 10:09] VITALS: BP 119/71; PULSE 90; RESP 17; TEMP 36.2; O2SAT 97; BMI 35.0
--- NOTE | 2024-09-09 10:09 | AMB.OBVISIT ---
Vital Signs 09/09/24 10:09 Height 1.65 m Height Method Measured Weight 95.481 kg Weight Measurement Method Standing Scale BMI 35.0 BP 119/71 Blood Pressure Source Automatic Cuff Blood Pressure Location Right Upper Arm Position Sitting Respiration 17 Pulse 90 Pulse Source Monitor Temp 97.1 F Temp Source Temporal Artery Scan Pulse Oximetry (%) 97 Oxygen Delivery Method Room Air Allergies/Home Meds Allergies & Medications Allergies No Known Allergies Allergy (Verified 09/09/24 10:09) Medication Reconciliation Unobtainable 09/06/24 [History Confirmed 09/09/24] Intake Visit Data Collection New Patient or Established: Established Patient (seen at [facility] within 3 years) Reason for Visit:: OBC Consent obtained for Telemed Visit: No Seen by Clinical Staff ONLY (RN/MA): No Adult Neuropsychologist Required: No Do You Feel Safe at Home: Yes Authorities Contacted: N/A PCP or OBGYN visit in last 3 months: Yes Date of Last PCP or OBGYN visit: 09/06/24 Hx Now: Yes Are you currently on any form of Control: No Pain Present Currently: No Pain Scale Used: Wei-Iqbal/Numerical Pain scale:: 0 Smoking Status Smoking Status: Never smoker Questionnaires Covid-19 Vaccine Questionnaire Has patient been vacinated for Covid-19 Have you been vacinated for Covid-19: Yes PHQ-9 PHQ-2 Over the last 2 weeks, how often have you been bothered by any of the following problems? 1. Little interest or pleasure in doing things: not at all PHQ-9 8. Moving or speaking so slowly that other people could have noticed? - Or the opposite - being so fidgety or restless that you have been moving around a lot more than usual: not at all Source: Developed by Drs. Urban Gardner, Julianne Jett, Jacob Lucero and colleagues, with an educational bruce from [employer]. 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 - She reports an umbilical hernia that is causing significant discomfort: - Pain occurs daily - Hernia protrudes when coughing - Patient denies cramping - Nausea has improved since last visit - Patient attended anatomy scan on the at [facility] OB Visit Log OB Flowsheet Initial Weight: Not Recorded Date <del>?</del> EGA Weight BP Alb Glu CTX Pres Fundal ht FHR Mov Dilation Station Effacement Hx Notes Visit Note 07/12/24 <del>?</del> 13w 1d 92.646 kg 123/74 at 13w1d, presents for routine care. No complaints today. Reports good FM, no CTX/LOF/VB. Denies HYDE, VC, or epigastric pain. Patient is currently off work on FMLA until September. Requests Zofran for nausea. FHR 146 bpm. NIPT returned negative for trisomies, female fetus confirmed. All labs WNL. Plan: Zofran prescribed for nausea, to be picked up at [facility]. Continue vitamins. Referred for anatomy scan at [facility] around 20 weeks. Routine follow-up in 4 weeks. Reviewed warning signs of labor and dietary recommendations to minimize GDM risk. Encouraged hydration, balanced meals, and rest. 09/09/24 <del>?</del> 21w 4d 95.481 kg 119/71 absent unknown 151 active at 21 weeks 4 days gestation presenting for routine care. Patient reports an umbilical hernia causing significant daily pain. heart rate auscultated at 151 bpm, within normal limits. Anatomy scan performed on the at [facility], with results indicating normal anatomy. AFP test was rejected due to prior genetic DNA testing. - Urgent consult with Dr. Akins for umbilical hernia evaluation and potential repair - Roselyn to call [facility] to obtain anatomy scan results - Glucose test order provided - Follow up appointment in 4 weeks ANKUR Calculator Estimated Delivery Date Method Current WG Current Estimate 01/16/25 Ultrasound #1 21w 4d Other Estimates 01/16/25 LMP (Uncertain) 21w 4d Exam General General Appearance: alert, in no apparent distress and healthy appearing Head Head exam: atraumatic Neck Neck exam: Present normal inspection and trachea midline Chest Chest inspection: Present normal inspection and symmetric chest wall rise External exam: Present normal external exam; Absent tenderness Neuro Neurological exam: Present oriented X3 Psych Psychiatric exam: Present normal affect and normal mood Office Procedures OB Clinic LOC & Office Proc's Nursing/Assessment Patient Status: Established Patient OB Clinic Nursing Assessment: Medication Reconciliation, Update PMH in EMR and Vital Signs OB Clinic Coordination of Care: Complex Care and Chronic Disease 1-5, Consent,records obtained, informed consent and Education Simp Pt/Fam Special Needs: Heart tones Established Patient Charge Established Patient Point Assignment: 105 Established Patient Point Charge: EP Level 3 (80-115) Assessment & Plan Diagnosis / Problem List (1) Umbilical hernia: Status: Acute (2) Supervision of high risk , unspecified, second trimester: Status: Acute Plan Assessment at 21 weeks 4 days gestation presenting for routine care. Patient reports an umbilical hernia causing significant daily pain. heart rate auscultated at 151 bpm, within normal limits. Anatomy scan performed on the at [facility], with results indicating normal anatomy. AFP test was rejected due to prior genetic DNA testing. Plan - Urgent consult with Dr. Akins for umbilical hernia evaluation and potential repair - Roselyn to call [facility] to obtain anatomy scan results - Glucose test order provided - Follow up appointment in 4 weeks
== END 2024-09-09 10:45 | disposition home or self-care (01) ==
PROVIDERS: Supervising Provider Obstetrics & Gynecology; Visit Provider Obstetrics & Gynecology
DX: O09.892 Supervision of other high risk pregnancies, second trimester (principal); K42.9 Umbilical hernia without obstruction or gangrene; O99.612 Diseases of the digestive system complicating pregnancy, second trimester; Z3A.21 21 weeks gestation of pregnancy
CPT/HCPCS: 99213; G0463

== ENCOUNTER 2024-10-11 09:59 | Outpatient (AMB) | payer MEDICAID, SELFPAY ==
[2024-10-11 10:35] VITALS: BP 124/73; PULSE 97; RESP 18; TEMP 36.6; O2SAT 95; BMI 35.7
--- NOTE | 2024-10-11 10:35 | OBCLNT_ITS ---
Vital Signs 10/11/24 10:35 Height 1.65 m Height Method Stated Weight 97.296 kg Weight Measurement Method Standing Scale BMI 35.7 BP 124/73 Blood Pressure Source Automatic Cuff Blood Pressure Location Left Upper Arm Position Sitting Respiration 18 Pulse 97 Pulse Source Monitor Temp 97.8 F Temp Source Oral Pulse Oximetry (%) 95 Oxygen Delivery Method Room Air Allergies/Home Meds Allergies & Medications Allergies No Known Allergies Allergy (Verified 10/11/24 10:37) Medication Reconciliation Unobtainable 09/06/24 [History Confirmed 10/11/24] Intake Visit Data Collection New Patient or Established: Established Patient (seen at [facility] within 3 years) Reason for Visit:: CARE Seen by Clinical Staff ONLY (RN/MA): No Material Disposition Inspector Required: No Do You Feel Safe at Home: Yes Authorities Contacted: N/A PCP or OBGYN visit in last 3 months: Yes Hx Now: Yes Are you currently on any form of Control: No Pain Present Currently: No Pain Scale Used: Wei-Iqbal/Numerical Pain scale:: 0 Smoking Status Smoking Status: Never smoker Questionnaires Covid-19 Vaccine Questionnaire Has patient been vacinated for Covid-19 Have you been vacinated for Covid-19: Yes PHQ-9 PHQ-2 Over the last 2 weeks, how often have you been bothered by any of the following problems? 1. Little interest or pleasure in doing things: not at all 2. Feeling down, depressed, or hopeless: not at all Total score: 0 PHQ-9 3. Trouble falling or staying asleep, or sleeping too much: Not at all 4. Feeling tired or having little energy: Not at all 5. Poor appetite or overeating: Not at all 6. Feeling bad about yourself - or that you are a failure or have let yourself or your family down: Not at all 7. Trouble concentrating on things, such as reading the newspaper or watching television: Not at all 8. Moving or speaking so slowly that other people could have noticed? - Or the opposite - being so fidgety or restless that you have been moving around a lot more than usual: not at all 9. Thoughts that you would be better off or of hurting yourself in some way: Not at all Total score: 0 Source: Developed by Julianne ColesW. Johnie, Jacob Lucero and colleagues, with an educational bruce from [employer]. 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 Past Medical History: No Hx Neurological Disorders, No Hx Hypothyroidism, No Hx Hyperthyroidism, No Hx Breast Cancer, No Hx Cardiac Disorders, No Hx Hypertension, No Hx Cancer, No Hx Blood Disorders, No Hx Anemia, No Hx Gastrointestinal Disorders, No Hx Renal Disease, No Hx Deep Vein Thrombosis, No Hx Diabetes Mellitus Type 1, No Hx Diabetes Mellitus Type 2, No Hx Tubal Ligation, No Hx Hysterectomy and No Psychiatric Problems Care OB Visit Log OB Flowsheet Initial Weight: Not Recorded Date -?-?-?-?-?-?-?-?-?-?-?-?- EGA Weight BP Alb Glu CTX Pres Fundal ht FHR Mov Dilation Station Effacement Hx Notes Visit Note 07/12/24 -?-?-?-?-?-?-?-?-?-?-?-?- 13w 1d 92.646 kg 123/74 at 13w1d, presents for routine care. No complaints today. Reports good FM, no CTX/LOF/VB. Denies HYDE, VC, or epigastric pain. Patient is currently off work on FMLA until September. Requests Zofran for nausea. FHR 146 bpm. NIPT returned negative for trisomies, female fetus confirmed. All labs WNL. Plan: Zofran prescribed for nausea, to b e picked up at [facility]. Continue vitamins. Referred for anatomy scan at [facility] around 20 weeks. Routine follow-up in 4 weeks. Reviewed warning signs of labor and dietary recommendations to minimize GDM risk. Encouraged hydration, balanced meals, and rest. 09/09/24 -?-?-?-?-?-?-?-?-?-?-?-?- 21w 4d 95.481 kg 119/71 absent unknown 151 active at 21 weeks 4 days gestation presenting for routine care. Patient reports an umbilical hernia causing significant daily pain. heart rate auscultated at 151 bpm, within normal limits. Anatomy scan performed on the at [facility], with results indicating normal anatomy. AFP test was rejected due to prior genetic DNA testing. - Urgent c onsult with Dr. Akins for umbilical hernia evaluation and potential repair - Roselyn to call [facility] to obtain a natomy scan results - Glucose test order provided - Follow up appointment in 4 weeks 10/11/24 -?-?-?-?-?-?-?-?-?-?-?-?- 26w 1d 97.296 kg 124/73 absent unknown 143 active 26w1d with VSD noted on prior scan; FHR 143 bpm, 1hr GTT 102 (normal). Plan: echo and specialist US tomorrow; follow-up in 4 weeks; continue routine care; bring glucose result to appointment. ANKUR Calculator Estimated Delivery Date Method Current WG Current Estimate 01/16/25 Ultrasound #1 26w 1d Other Estimates 01/16/25 LMP (Uncertain) 26w 1d Office Procedures OB Clinic LOC & Office Proc's Nursing/Assessment Patient Status: Established Patient OB Clinic Nursing Assessment: Medication Reconciliation, Update PMH in EMR and Vital Signs OB Clinic Coordination of Care: AMA, Complex Care and Chronic Disease 1-5, Consent,records obtained, informed consent, Education Simp Pt/Fam, Lab and Imaging orders, Results/Orders obtained and Staff clarify orders Special Needs: Heart tones Established Patient Charge Established Patient Point Assignment: 155 Established Patient Point Charge: EP Level 4 (120-155) Assessment & Plan Diagnosis / Problem List (1) Supervision of high risk , unspecified, second trimester: Status: Acute
== END 2024-10-11 10:48 | disposition home or self-care (01) ==
LOC: HODSOBC 09:59
PROVIDERS: Supervising Provider Obstetrics & Gynecology; Visit Provider Obstetrics & Gynecology
DX: O09.892 Supervision of other high risk pregnancies, second trimester (principal); O35.BXX0 Maternal care for other (suspected) fetal abnormality and damage, fetal cardiac anomalies, not applicable or unspecified; Z3A.26 26 weeks gestation of pregnancy
CPT/HCPCS: 99214; G0463

== ENCOUNTER 2024-11-11 14:18 | Observation (INO) | payer MEDICAID, SELFPAY ==
[2024-11-11] VITALS (11 sets, daily range): BP systolic 101; BP diastolic 58; PULSE 87–102; RESP 20–97; TEMP 36.8; O2SAT 96–99; BMI 36.9
== END 2024-11-11 15:10 | disposition home or self-care (01) ==
PROVIDERS: Admitting Provider Obstetrics & Gynecology; Visit Provider Obstetrics & Gynecology
DX: O36.8130 Decreased fetal movements, third trimester, not applicable or unspecified (principal); Z3A.31 31 weeks gestation of pregnancy
CPT/HCPCS: 59025; 59899

== ENCOUNTER 2024-11-15 09:24 | Outpatient (AMB) | payer MEDICAID, SELFPAY ==
[2024-11-15 10:11] VITALS: BP 97/57; PULSE 78; RESP 16; TEMP 36.3; O2SAT 99; BMI 36.9
--- NOTE | 2024-11-15 10:11 | AMB.OBVISIT ---
Vital Signs 11/15/24 10:11 Height 1.65 m Height Method Stated Weight 100.754 kg Weight Measurement Method Standing Scale BMI 36.9 BP 97/57 L Blood Pressure Source Automatic Cuff Blood Pressure Location Left Upper Arm Position Sitting Respiration 16 Pulse 78 Pulse Source Monitor Temp 97.4 F Temp Source Oral Pulse Oximetry (%) 99 Oxygen Delivery Method Room Air Allergies/Home Meds Allergies & Medications Allergies No Known Allergies Allergy (Verified 11/15/24 10:14) Medication Reconciliation vitamins no.45-iron-FA 28 mg iron-1 mg chewable tablet 1 tab PO QDAY 11/11/24 [History Confirmed 11/15/24] Intake Visit Data Collection New Patient or Established: Established Patient (seen at [facility] within 3 years) Reason for Visit:: OBC Seen by Clinical Staff ONLY (RN/MA): No Laboratory Miller Required: No Do You Feel Safe at Home: Yes Authorities Contacted: N/A PCP or OBGYN visit in last 3 months: Yes Date of Last PCP or OBGYN visit: 11/10/24 Hx Now: Yes Are you currently on any form of Control: No Pain Present Currently: No Pain Scale Used: Wei-Iqbal/Numerical Pain scale:: 0 Smoking Status Smoking Status: Never smoker Are you interested in Quitting?: No Would you like additional Smoking Cessation Counseling?: No Questionnaires Covid-19 Vaccine Questionnaire Has patient been vacinated for Covid-19 Have you been vacinated for Covid-19: Yes PHQ-9 PHQ-2 Over the last 2 weeks, how often have you been bothered by any of the following problems? 1. Little interest or pleasure in doing things: not at all 2. Feeling down, depressed, or hopeless: not at all Total score: 0 PHQ-9 3. Trouble falling or staying asleep, or sleeping too much: Not at all 4. Feeling tired or having little energy: Not at all 5. Poor appetite or overeating: Not at all 6. Feeling bad about yourself - or that you are a failure or have let yourself or your family down: Not at all 7. Trouble concentrating on things, such as reading the newspaper or watching television: Not at all 8. Moving or speaking so slowly that other people could have noticed? - Or the opposite - being so fidgety or restless that you have been moving around a lot more than usual: not at all 9. Thoughts that you would be better off or of hurting yourself in some way: Not at all Total score: 0 If you checked off any problems, how difficult have these problems made it for you to do your work, take care of things at home, or get along with other people?: not difficult at all Source: Developed by Drs. Urban Gardner, Julianne Jett, Jacob Lucero and colleagues, with an educational bruce from [employer]. 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 Past Medical History: No Hx Neurological Disorders, No Hx Hypothyroidism, No Hx Hyperthyroidism, No Hx Breast Cancer, No Hx Cardiac Disorders, No Hx Hypertension, No Hx Cancer, No Hx Blood Disorders, No Hx Anemia, No Hx Gastrointestinal Disorders, No Hx Renal Disease, No Hx Deep Vein Thrombosis, No Hx Diabetes Mellitus Type 1, No Hx Diabetes Mellitus Type 2, No Hx Tubal Ligation, No Hx Hysterectomy and No Psychiatric Problems Care OB Visit Log OB Flowsheet Initial Weight: Not Recorded Date <del>?</del> EGA Weight BP Alb Glu CTX Pres Fundal ht FHR Mov Dilation Station Effacement Hx Notes Visit Note 07/12/24 <del>?</del> 13w 1d 92.646 kg 123/74 at 13w1d, presents for routine care. No complaints today. Reports good FM, no CTX/LOF/VB. Denies HYDE, VC, or epigastric pain. Patient is currently off work on FMLA until September. Requests Zofran for nausea. FHR 146 bpm. NIPT returned negative for trisomies, female fetus confirmed. All labs WNL. Plan: Zofran prescribed for nausea, to be picked up at [facility]. Continue vitamins. Referred for anatomy scan at [facility] around 20 weeks. Routine follow-up in 4 weeks. Reviewed warning signs of labor and dietary recommendations to minimize GDM risk. Encouraged hydration, balanced meals, and rest. 08/09/24 <del>?</del> 17w 1d 93.667 kg 116/72 09/06/24 <del>?</del> 21w 1d 95.311 kg 112/70 09/09/24 <del>?</del> 21w 4d 95.481 kg 119/71 absent unknown 151 active at 21 weeks 4 days gestation presenting for routine care. Patient reports an umbilical hernia causing significant daily pain. heart rate auscultated at 151 bpm, within normal limits. Anatomy scan performed on the at [facility], with results indicating normal anatomy. AFP test was rejected due to prior genetic DNA testing. - Urgent consult with Dr. Akins for umbilical hernia evaluation and potential repair - Roselyn to call [facility] to obtain anatomy scan results - Glucose test order provided - Follow up appointment in 4 weeks 10/11/24 <del>?</del> 26w 1d 97.296 kg 124/73 absent unknown 143 active 26w1d with VSD noted on prior scan; FHR 143 bpm, 1hr GTT 102 (normal). Plan: echo and specialist US tomorrow; follow-up in 4 weeks; continue routine care; bring glucose result to appointment. 11/15/24 <del>?</del> 31w 1d 100.754 kg 97/57 ANKUR Calculator Estimated Delivery Date Method Current WG Current Estimate 01/16/25 Ultrasound #1 31w 1d Other Estimates 01/16/25 LMP (Uncertain) 31w 1d Office Procedures OBC Clinic LOC & Office Proc's Nursing/Assessment Patient Status: Established Patient OB Clinic Nursing Assessment: Medication Reconciliation, Update PMH in EMR and Vital Signs OB Clinic Coordination of Care: Education Complex Pt/Fam, Consent,records obtained, informed consent, Education Simp Pt/Fam, Lab and Imaging orders, Results/Orders obtained and Staff clarify orders Special Needs: Heart tones Established Patient Charge Established Patient Point Assignment: 130 Established Patient Point Charge: EP Level 4 (120-155) Injection/Vaccine Admin SQ Im Injection: Yes Immunizations diphth,pertus(acell),tetanus 2.5 Lf unit-8 mcg-5 Lf/0.5mL IM syringe Performing Provider: Hubert Puente MD Performing Location: [facility] Administered by: Charu Madrid MA on 11/15/24 10:52 Dose Route Admin Location Dispensed Lot Number Expiration Date Package NDC NDC Electric [employer]or [employer] 0.5 mL IM Left Deltoid 0.5 mL [id number] 01/06/27 39959-815-46 [id number] [employer] VIS Given Date VIS Provided VIS Publication Date 11/15/24 Single Vaccine 24 Eligibility Eligibility Date Funding Source Public [facility] Assessment & Plan Diagnosis / Problem List (1) with 32 completed weeks gestation: Status: Acute (2) Supervision of high risk , unspecified, third trimester: Status: Acute (3) Maternal care for other (suspected) abnormality and damage, fetus 3: Status: Acute Plan Problem List - , 31 weeks and 1 day - Ventricular septal defect (VSD) in fetus - Diastasis recti Assessment at 31 weeks and 1 day presenting for routine visit. Patient was seen in triage last weekend for decreased movements, where tracing was appropriate. Patient has established care with [facility] for follow-up on VSD, which has reportedly resolved. heart rate noted to be 152 bpm, within normal range. Patient reports abdominal muscle soreness, likely due to diastasis recti, a common occurrence in . Third trimester labs are due, including CBC, RPR, and Tdap vaccination. Plan - Perform third trimester labs: CBC, RPR, and Tdap - Follow up in 2 weeks - Review results from Dr. Carrillo's appointment (scheduled for Thursday) 1. Progress Reviewed gestational age (31 weeks and 1 day), growth, and heart rate (152 bpm, normal). Planned frequent visits (every 2 weeks until 36 weeks, then weekly). 2. Instructed patient to monitor movements and report decreases immediately. 3. Testing Counseled on routine third-trimester labs per guidelines (CBC, RPR, and Tdap ordered). Discussed potential need for ultrasound or monitoring based on risk factors. 4. Preeclampsia Precaution Educated on preeclampsia signs: severe headache, vision changes, right upper quadrant pain, sudden swelling. Advised urgent reporting of symptoms and discussed blood pressure monitoring if high risk. 5. Labor Precautions Reviewed labor signs: regular contrinations, pelvic pressure, back pain, bleeding, or fluid leakage. Instructed to seek immediate care for these symptoms. 6. Lifestyle and Delivery Preparation Reinforced vitamins, nutrition, and safe activity. Discussed plan, pain management, and . Advised on labor preparation (e.g., hospital bag) and expectations. 7. Psychosocial Support Assessed emotional well-being and offered resources for mental health or parenting support.
== END 2024-11-15 10:31 | disposition home or self-care (01) ==
LOC: HODSOBC 09:24
PROVIDERS: Supervising Provider Obstetrics & Gynecology; Visit Provider Obstetrics & Gynecology
DX: O09.893 Supervision of other high risk pregnancies, third trimester (principal); O35.BXX0 Maternal care for other (suspected) fetal abnormality and damage, fetal cardiac anomalies, not applicable or unspecified; O99.891 Other specified diseases and conditions complicating pregnancy; M62.08 Separation of muscle (nontraumatic), other site; Z3A.32 32 weeks gestation of pregnancy; Z23 Encounter for immunization
CPT/HCPCS: 90471; 90715; 96372; 99214; G0463

== ENCOUNTER 2024-11-27 15:08 | Observation (INO) | payer MEDICAID, SELFPAY ==
[2024-11-27] VITALS (82 sets, daily range): BP systolic 101–121; BP diastolic 55–66; PULSE 86–128; RESP 20–97; TEMP 36.8; O2SAT 96–100; BMI 38.1
[2024-11-27 15:53] LABS: ROM Kit Lot # 58106258
[2024-11-27 15:54] LABS: ROM Kit Exp Date# 04/11/28; ROM Swab Mixed By: HL; Rupture of Fetal Membranes Negative (Negative); Swb Mxed in Solvent 1 min? Yes
[2024-11-27] MEDS: TERBUTALINE SULF INJ 1 MG/ML VIAL 0.25 MG SC ×2 (16:23→16:43)
[2024-11-27] MEDS: RINGERS LACTATED 1000 ML 1,000 ML 999 ML IV (17:25)
[2024-11-27 18:18] LABS: Basophils # (Auto) 0.0 Thou/mm3 (0.0-0.2); Basophils % (Auto) 0 % (0-2.5); Eosinophils # (Auto) 0.1 Thou/mm3 (0.0-0.5); Eosinophils % (Auto) 1 % (0-10); Hematocrit 34.5 % (36.0-46.0); Hemoglobin 11.9 g/dL (12.0-16.0); Immature Granulocytes Auto 0.04 Thou/mm3 (0.00-0.00); Lymphocytes # (Auto) 2.6 Thou/mm3 (1.0-4.8); Lymphocytes % (Auto) 27 % (10-50); Mean Corpuscular HGB Conc 34.5 g/dl (31.0-37.0); Mean Corpuscular Hemoglobin 31.7 pg (25.0-35.0); Mean Corpuscular Volume 92 fL (80-100); Monocytes # (Auto) 0.8 Thou/mm3 (0.0-0.8); Monocytes % (Auto) 8 % (0-12); Neutrophils # (Auto) 6.0 Thou/mm3 (1.8-7.7); Neutrophils % (Auto) 64 % (37-80); Nucleated Red Blood Cell # 0.00 Thou/mm3 (0.00-0.00); Nucleated Red Blood Cell % 0 /100 WBC (0); Platelet Count 181 Thou/mm3 (140-440); RDW Standard Deviation 41.1 fL (36.4-46.3); Red Blood Count 3.75 Miln/mm3 (4.00-5.20); White Blood Count 9.5 Thou/mm3 (3.6-11.0)
[2024-11-27 18:18] LABS: Collection Type, Urine Clean Catch
[2024-11-27 18:21] LABS: Alanine Aminotransferase 11 U/L (10-49); Albumin, Serum 4.3 gm/dL (3.5-5.0); Albumin/Globulin Ratio 1.7 (1.2-2.2); Alkaline Phosphatase 125 U/L (46-116); Anion Gap 15 (7-16); Aspartate Amino Transferase 18 U/L (0-34); BUN/Creatinine Ratio 10 Ratio (12-20); Bilirubin,Total 0.4 mg/dL (0.3-1.2); Blood Urea Nitrogen 6 mg/dL (9-23); Calcium 9.1 mg/dL (8.3-10.6); Calcium (Corrected) 9.1 mg/dL (8.5-10.1); Carbon Dioxide 18.1 mMol/L (20.0-31.0); Chloride 107 mMol/L (98-107); Creatinine (Component) 0.6 mg/dL (0.6-1.3); Estimated Creatinine Clearance 168.5 mL/min (>60); Globulin 2.5 gm/dL (2.3-3.5); Glucose 100 mg/dL (74-106); Osmolality,Calculated 277 (275-295); Potassium 3.1 mMol/L (3.4-5.1); Sodium 140 mMol/L (136-145); Total Protein 6.8 gm/dL (5.7-8.2); eGFR > 60 See Note
[2024-11-27 18:35] LABS: Bacteria,Urine Rare; Bilirubin,Urine Negative (Negative); Blood,Urine Negative (Negative); Clarity,Urine Clear (Clear/Hazy); Color,Urine Colorless (Lt Yel-Yel); Glucose, Urine Negative (Negative); Ketones,Urine Negative (Negative); Leukocyte Esterase,Urine Negative (Negative); Nitrite,Urine Negative (Negative); PH,Urine 6.5 (5.0-7.0); Protein,Urine Negative (Neg - Trace); RBC,Urine 1 /hpf (0-3); Specific Gravity,Urine 1.006 (1.001-1.035); Squamous Epithelial Cell,Urine < 1 /hpf (0-5); Urobilinogen,Urine Negative mg/dL (0.0-1.0); WBC,Urine < 1 /hpf (0-5)
--- NOTE | 2024-11-27 20:21 | XR_ITS ---
Examination: Complete OB ultrasound greater than 14 weeks Date and time of exam: November 27, 2024 2145 hours INDICATIONS: Onset pelvic contractions today, labor evaluation Findings: Viable intrauterine single fetus with single amniotic sac presentation breech Cardiac motion 127 bpm Placenta posterior grade 3 Umbilical cord insertion seen Amniotic fluid index 12.2 cm spine maternal left Ovaries obscured by bowel gas. Composite estimated gestational age based on BPD, head circumference, abdominal circumference, femur length is 36 weeks 1 day Estimated weight 2759 g. Survey of intracranial anatomy, spinal anatomy, abdominal anatomy, four-chamber heart performed with no abnormalities identified. Impression: Viable intrauterine gestation in breech presentation
[2024-11-27] MEDS: BETAMET ACET/BETAMET NA PH (Celestone) 6 MG/ML VIAL 12 MG IM (20:43)
[2024-11-27] MEDS: Magnesium Sulfate 4 GM Ivpb 4 GM/50 ML BAG IV (20:51)
[2024-11-27] MEDS: Ampicillin Inj 2,000 MG in SODIUM CHLORIDE 0.9% (POP) 100 ML 200 MG IV (20:56)
[2024-11-27 21:03] LABS: Amphetamine/Metham Scrn,Ur OB Negative (Negative); Benzoylecgonine Screen, Ur OB Negative (Negative); Opiate Screen,Urine OB Negative (Negative); THC Screen,Urine OB Negative (Negative)
[2024-11-27] MEDS: MAGNESIUM SULF 20 GM IVPB 20 GM/500 ML BAG IV (21:34)
--- NOTE | 2024-11-27 22:28 | ESHP_ITS ---
Documentation for date of: 11/27/24 OB Labor/Induct. HPI History of Present Illness Chief complaint: contractions/rating her pain 8/10 ,not responding to intervention : 5 Para: 4 Term pregnancies: 4 pregnancies: 0 Living children: 4 History of Abortions: Spontaneous and Elective: 0 History of Vaginal deliveries: 4 History of sections: No History of : No ANKUR: 01/16/25 Gestational Age (weeks): 32 Gestational Age (days): 6 History of present illness: Patient came in 29 years old 5 para 4 at 32.6 weeks dates confirmed based on LMP and a 9-week ultrasound. Did not respond for contractions with Procardia or terbutaline or IV hydration currently on magnesium sulfate 4 g bolus 2 g/h for neuroprotection received 1 dose of betamethasone is also on ampicillin Her contractions however continue and she still rates them as 7-8 out of 10. No prior history of according to the patient labs are all normal O+ blood group. RPR nonreactive HIV negative hepatitis screen negative genetic testing normal On ultrasound today at bedside said breech presentation. With a posterior placenta Pelvic exam shows a fingertip cervix thick and at -3 station. There is no cervical change from the afternoon 12 AmniSure is negative Labs show a potassium of 3.1 and she was given supplementation of potassium chloride p.o. other than that rest of the CBC CMP, UA, urinary tox screen and AmniSure are all negative Comments: Patient agrees to transfer for higher level NICU care and I have called [facility] and spoken to JUANITO Chapman for the transfer and has been accepted History of Present Dating criteria: LMP confirmed by 1st trimester US Adequate Care: Yes Ultrasounds: normal 1st trimester US Abnormal ultrasound findings: today, breech presentation Obstetrical complications: none Medical complications: none Labs Maternal Blood Type: O Pos Labs: Positive: Rubella Titre and Negative: RPR, Hepatitis B, HIV, Chlamydia and Gonorrhea Review of Systems Review of Systems Systems Reviewed: All systems reviewed, normal except as documented Past Medical History Surgical History SURGICAL: Positive Abdominal Surgery; Negative Section OTHER SURGICAL HX: appendectomy Social History SOCIAL: denies Past Medical History Comments PMH COMMENT: had one surrogate and this is her own baby Meds Home Medications and Allergies Home Medications ?Medication ?Instructions ?Recorded ?Confirmed ?Type vitamins no.45-iron-FA 28 1 tab PO QDAY 11/1111/27/24 History mg iron-1 mg chewable tablet Allergies Allergy/AdvReac Type Severity Reaction Status Date / Time No Known Allergies Allergy Verified 11/15/24 10:14 OB Exam Physical Exam Vital signs: Temp Pulse Resp BP Pulse Ox 98.3 F 86 20 101/58 L 98 11/27/24 15:15 11/27/24 22:26 11/27/24 15:15 11/27/24 22:26 11/27/24 22:27 Alert and oriented x 3 no shortness of breath Pain no chest pain no palpitations Chest clear bilaterally no additional sounds, no wheezing no rales CVS regular rate and rhythm No CVAT Abdomen nontender, normal bowel sounds No guarding no rigidity No hernias Narrative: Size equal to dates uterus non tender mild contractions q 3 to 6 minutes non tender FHR is category 1 feta presentation is breech on US Detailed Labor and Delivery Exam Dilation (cm): FT Effacement (%): 0 station: -3 Consistency: soft Presentation: Breech Membranes: intact monitor accelerations: 15x15 monitor decelerations: None long term acute care registered nurse variability: Average (6-10) Contraction intensity: Mild Comments: patient rates intensity as 10 OB Results Labs 11/27/24 17:10 11/27/24 17:10 Labs: Short CBC 11/27/24 Range/Units 17:10 WBC 9.5 (3.6-11.0) Thou/mm3 Hgb 11.9 L (12.0-16.0) g/dL Hct 34.5 L (36.0-46.0) % Plt Count 181 (140-440) Thou/mm3 BMP 11/27/24 17:10 Sodium 140 Potassium 3.1 L Chloride 107 Carbon Dioxide 18.1 L BUN 6 L Creatinine 0.6 Glucose 100 Calcium 9.1 Liver Function 11/27/24 Range/Units 17:10 Total Bilirubin 0.4 (0.3-1.2) mg/dL AST 18 (0-34) U/L ALT 11 (10-49) U/L Alkaline Phosphatase 125 H (46-116) U/L Albumin 4.3 (3.5-5.0) gm/dL Urine 11/27/24 Range/Units 15:15 Urine Color Colorless A (Lt Yel-Yel) Urine Clarity Clear (Clear/Hazy) Urine pH 6.5 (5.0-7.0) Ur Specific [place] 1.006 (1.001-1.035) Urine Protein Negative (Neg - Trace) Urine Glucose (UA) Negative (Negative) OB Assessment & Plan Assessment and Plan (1) with 32 completed weeks gestation: Status: Acute (2) Supervision of high risk , unspecified, third trimester: Status: Acute (3) labor in third trimester: Status: Acute (4) Breech presentation: Status: Acute Additional Plan Additional Plan Comment: Patient has not responded to IV hydration, Procardia p.o., subcutaneous terbutaline, and is now on magnesium sulfate with 4 g bolus and 2 g/h for neuroprotection also has received betamethasone for lung maturity and is also on ampicillin Patient has had active discussion about risk benefits of transfer to higher level of care because of the gestational age of the baby and she agrees is agreeable to transfer and will be transferring to [facility] cervix has been unchanged but the contractions keep ongoing in spite of all the interventions so she is still at high risk for delivery and the transfer would be for higher level of thank you care
[2024-11-27 22:36] LABS: Magnesium 2.8 mg/dL (1.6-2.6)
[2024-11-28 00:02] VITALS: PULSE 92; O2SAT 96
[2024-11-28 00:07] VITALS: PULSE 101; PULSE 99; O2SAT 89; O2SAT 99
== END 2024-11-28 00:20 | disposition short-term general hospital (02) ==
PROVIDERS: Admitting Provider Obstetrics & Gynecology; Visit Provider Obstetrics & Gynecology
DX: O60.03 Preterm labor without delivery, third trimester (principal); O32.1XX0 Maternal care for breech presentation, not applicable or unspecified; Z3A.32 32 weeks gestation of pregnancy; O09.93 Supervision of high risk pregnancy, unspecified, third trimester
CPT/HCPCS: 36415; 59025; 59899; 76805; 80053; 80307; 81001; 83735; 84112; 85025; 96372; J0290; J0702; J3105; J3475; J7120; A9270

== ENCOUNTER 2024-11-29 14:14 | Observation (INO) | payer MEDICAID, SELFPAY ==
[2024-11-29] VITALS (47 sets, daily range): BP systolic 0–115; BP diastolic 0–91; PULSE 71–137; RESP 16–98; TEMP 36.6–36.8; O2SAT 95–99; BMI 37.3
--- NOTE | 2024-11-29 16:01 | XR_ITS ---
EXAMINATION: pelvis Limited TECHNIQUE: Limited transabdominal sonographic images pelvis Date and time: November 28 [id number], 1612 hours INDICATIONS: Pelvic contractions beginning 2 days ago FINDINGS: Viable intrauterine gestation Placenta posterior grade 2 no abruption Cardiac motion 147 bpm Amniotic fluid index 12.4 cm IMPRESSION: Negative for placental abruption
--- NOTE | 2024-11-29 16:07 | PD.LDANTE ---
Documentation for date of: 11/29/24 OB Labor/Induct. HPI History of Present Illness Chief complaint: Contractions : 5 Para: 4 Term pregnancies: 4 pregnancies: 0 Living children: 4 History of Abortions: Spontaneous and Elective: 0 History of Vaginal deliveries: 4 History of sections: No History of : No ANKUR: 01/16/25 History of present illness: Tasha is a 29-year-old 5 para 4-0-0-4 at 33 weeks and 1 day estimated due date of 01/16/2025 who presented to labor and delivery triage with contractions every 5 to 6 minutes. Patient presented here with the same complaints on Thursday which was 2 days ago and she was transferred to [facility] in [place]. She has not made any cervical change since that day. During her previous admission here in transfer she received magnesium for neuroprophylaxis she received betamethasone x 2 and she received Procardia for toco lysis. Patient was discharged last night on her request from [facility], she reports that she continues to have the same contractions as before. Current is otherwise uncomplicated. Patient received care at the [facility]. She has had anatomy ultrasound which was within normal limits. Of note the fetus was breech when she had her last ultrasound. History of Present Adequate Care: Yes Past Medical History Surgical History SURGICAL: Negative Section Meds Home Medications and Allergies Home Medications ?Medication ?Instructions ?Recorded ?Confirmed ?Type vitamins no.45-iron-FA 28 1 tab PO QDAY 11/11/24 11/27/24 History mg iron-1 mg chewable tablet Allergies Allergy/AdvReac Type Severity Reaction Status Date / Time No Known Allergies Allergy Verified 11/15/24 10:14 OB Exam Physical Exam Vital signs: Temp Pulse Resp BP Pulse Ox 97.8 F 101 H 18 114/91 H 98 11/29/24 14:25 11/29/24 14:25 11/29/24 14:25 11/29/24 14:11/29/24 16:04 Constitutional Constitutional: no acute distress Routine HEENT Exam Head: Present normocephalic and atraumatic Eye: Present EOMI and PERRL ENT: Present mucous membranes moist Routine Neck Exam Neck: Present supple and trachea midline Routine Cardiovascular Exam Cardiovascular: Present RRR Routine Abdominal Exam Abdominal: Present soft and normoactive bowel sounds Detailed Labor and Delivery Exam Dilation (cm): 1 Effacement (%): 50 Cervix position: mid station: -4 Consistency: medium Presentation: Breech Baseline heart rate: 145 monitor accelerations: 10x10 monitor decelerations: None Routine Extremities Exam Extremities: Present full ROM Routine Skin Exam Skin: Present intact, dry and warm Routine Neurological Exam Neurological: Present alert, oriented X3 and CN II-XII intact Routine Psychiatric Exam Psychiatric: Present normal affect and normal thought process OB Assessment & Plan Assessment and Plan (1) Breech presentation: Status: Acute (2) labor in third trimester: Status: Acute Assessment and plan: Admit to antepartum status for toco lysis and continuous monitoring Repeat ultrasound ordered to confirm presentation Further management depending on clinical course
[2024-11-29] MEDS: RINGERS LACTATED 1000 ML 1,000 ML 125 ML IV ×3 (16:44→22:51)
[2024-11-29 18:17] LABS: Basophils # (Auto) 0.0 Thou/mm3 (0.0-0.2); Basophils % (Auto) 0 % (0-2.5); Eosinophils # (Auto) 0.0 Thou/mm3 (0.0-0.5); Eosinophils % (Auto) 0 % (0-10); Hematocrit 30.8 % (36.0-46.0); Hemoglobin 10.5 g/dL (12.0-16.0); Immature Granulocytes Auto 0.14 Thou/mm3 (0.00-0.00); Lymphocytes # (Auto) 1.6 Thou/mm3 (1.0-4.8); Lymphocytes % (Auto) 15 % (10-50); Mean Corpuscular HGB Conc 34.1 g/dl (31.0-37.0); Mean Corpuscular Hemoglobin 31.9 pg (25.0-35.0); Mean Corpuscular Volume 94 fL (80-100); Monocytes # (Auto) 1.1 Thou/mm3 (0.0-0.8); Monocytes % (Auto) 10 % (0-12); Neutrophils # (Auto) 7.8 Thou/mm3 (1.8-7.7); Neutrophils % (Auto) 74 % (37-80); Nucleated Red Blood Cell # 0.00 Thou/mm3 (0.00-0.00); Nucleated Red Blood Cell % 0 /100 WBC (0); Platelet Count 179 Thou/mm3 (140-440); RDW Standard Deviation 43.0 fL (36.4-46.3); Red Blood Count 3.29 Miln/mm3 (4.00-5.20); White Blood Count 10.6 Thou/mm3 (3.6-11.0)
[2024-11-29 18:27] LABS: INR 1.0 (0.9-1.3); Partial Thromboplastin Time 23.4 Seconds (22.0-36.0); Prothrombin Time 10.2 Seconds (9.0-12.2)
[2024-11-29 18:47] LABS: Syphilis Nonreactive (Nonreactive)
[2024-11-30] VITALS (17 sets, daily range): BP systolic 0–110; BP diastolic 0–65; PULSE 74–101
== END 2024-11-30 09:44 | disposition home or self-care (01) ==
PROVIDERS: Admitting Provider Obstetrics & Gynecology; Visit Provider Obstetrics & Gynecology
DX: O60.03 Preterm labor without delivery, third trimester (principal); O32.1XX0 Maternal care for breech presentation, not applicable or unspecified; Z3A.33 33 weeks gestation of pregnancy
CPT/HCPCS: 36415; 59025; 59899; 76815; 85025; 85610; 85730; 86780; 86850; 86900; 86901; 96360; 96361; J7120; A9270

== ENCOUNTER 2024-12-05 08:47 | Outpatient (AMB) | payer MEDICAID, SELFPAY ==
[2024-12-05 08:54] VITALS: BP 107/73; PULSE 95; RESP 18; TEMP 36.6; O2SAT 97; BMI 37.3
--- NOTE | 2024-12-05 08:54 | OBCLNT_ITS ---
Vital Signs 12/05/24 08:54 Height 1.65 m Height Method Stated Weight 101.831 kg Weight Measurement Method Standing Scale BMI 37.3 BP 107/73 Blood Pressure Source Automatic Cuff Blood Pressure Location Right Upper Arm Position Sitting Respiration 18 Pulse 95 Pulse Source Monitor Temp 97.9 F Temp Source Temporal Artery Scan Pulse Oximetry (%) 97 Oxygen Delivery Method Room Air Allergies/Home Meds Allergies & Medications Allergies No Known Allergies Allergy (Verified 12/05/24 08:57) Medication Reconciliation vitamins no.45-iron-FA 28 mg iron-1 mg chewable tablet 1 tab PO QDAY 11/11/24 [History Confirmed 12/05/24] nifedipine 10 mg capsule 10 mg PO TID 7 days #21 caps 12/05/24 [Rx] Intake Visit Data Collection New Patient or Established: Established Patient (seen at [facility] within 3 years) Reason for Visit:: OBC Seen by Clinical Staff ONLY (RN/MA): No Stock Lifter Required: No Do You Feel Safe at Home: Yes Authorities Contacted: N/A PCP or OBGYN visit in last 3 months: Yes Date of Last PCP or OBGYN visit: 11/30/24 Hx Now: Yes Are you currently on any form of Control: No Pain Present Currently: No Pain Scale Used: Wei-Iqbal/Numerical Pain scale:: 0 Smoking Status Smoking Status: Never smoker Immunizations Flu Vaccine in the Last 12 Months: No Flu Vaccine Exclusion Criteria: No Exclusion Criteria Questionnaires Covid-19 Vaccine Questionnaire Has patient been vacinated for Covid-19 Have you been vacinated for Covid-19: Yes PHQ-9 PHQ-2 Over the last 2 weeks, how often have you been bothered by any of the following problems? 1. Little interest or pleasure in doing things: not at all 2. Feeling down, depressed, or hopeless: not at all Total score: 0 PHQ-9 3. Trouble falling or staying asleep, or sleeping too much: Not at all 4. Feeling tired or having little energy: Not at all 5. Poor appetite or overeating: Not at all 6. Feeling bad about yourself - or that you are a failure or have let yourself or your family down: Not at all 7. Trouble concentrating on things, such as reading the newspaper or watching television: Not at all 8. Moving or speaking so slowly that other people could have noticed? - Or the opposite - being so fidgety or restless that you have been moving around a lot more than usual: not at all 9. Thoughts that you would be better off or of hurting yourself in some way: Not at all Total score: 0 If you checked off any problems, how difficult have these problems made it for you to do your work, take care of things at home, or get along with other people?: not difficult at all Source: Developed by Drs. Urban Gardner, Julianne Jett, Jacob Lucero and colleagues, with an educational bruce from [employer]. 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 History Past Medical History: No Hx Neurological Disorders, No Hx Hypothyroidism, No Hx Hyperthyroidism, No Hx Breast Cancer, No Hx Cardiac Disorders, No Hx Hypertension, No Hx Cancer, No Hx Blood Disorders, No Hx Anemia, No Hx Gastrointestinal Disorders, No Hx Renal Disease, No Hx Deep Vein Thrombosis, No Hx Diabetes Mellitus Type 1, No Hx Diabetes Mellitus Type 2, No Hx Tubal Ligation, No Hx Hysterectomy and No Psychiatric Problems Care OB Visit Log OB Flowsheet Initial Weight: Not Recorded Date -?-?-?-?-?-?-?-?-?-?-?-?- EGA Weight BP Alb Glu CTX Pres Fundal ht FHR Mov Dilation Station Effaceme nt Hx Notes Visit Note 07/12/24 -?-?-?-?-?-?-?-?-?-?-?-?- 13w 1d 92.646 kg 123/74 at 13w1d, presents for routine care. No complaints today. Reports good FM, no CTX/LOF/VB. Denies HYDE, VC, or epigastric pain. Patient is currently off work on FMLA until September. Requests Zofran for nausea. FHR 146 bpm. NIPT returned negative for trisomies, female fetus confirmed. All labs WNL. Plan: Zofran prescribed for nausea, to b e picked up at [facility]. Continue p renatal vitamins. Referred for anatomy scan at [facility] around 20 weeks. Routine follow-up in 4 weeks. Reviewed warning signs of labor and dietary recommendations to minimize GDM risk. Encouraged hydration, balanced meals, and rest. 08/09/24 -?-?-?-?-?-?-?-?-?-?-?-?- 17w 1d 93.667 kg 116/72 145 Tasha Gonzalez, ([id number]), presents for routine visit at 17 weeks gestation. Patient denies cramping, nausea, or abdo meli pain. Denies HYDE, VC, and epigastric pain. - Tasha Gonzalez is presenting for a [facility] visit at 17 weeks gestation. - She reports no significant issues or c oncerns: - Denies nausea, vomiting, or cramping - Patient states she has been doing pre tty well overall - Recent changes in employment status: - Has not returned to work at the [employer] as initially planned on the 4th - Patient and her partner decided she will be staying at home for now - Medication adherence: - Reports taking vitamins as prescribed Plan: - Complete AFP (alpha-fetoprotein) scree josie test - Schedule glucose tolerance test at 24 weeks gestation - Continue vitamins - Schedule 20-week anatomy ultrasound at [facility] - Follow-up visit in 4 weeks 09/06/24 -?-?-?-?-?-?-?-?-?-?-?-?- 21w 1d 95.311 kg 112/70 155 active No ac complaints. MFM coming up. Return in 4 weeks with 1hr GTT 09/09/24 -?-?-?-?-?-?-?-?-?-?-?-?- 21w 4d 95.481 kg 119/71 absent unknown 151 active at 21 weeks 4 days gestation presenting for routine care. Patient reports an umbilical hernia causing significant daily pain. heart rate auscultated at 151 bpm, within normal limits. Anatomy scan performed on the at [facility], with results indicating normal anatomy. AFP test was rejected due to prior genetic DNA testing. - Urgent c onsult with Dr. Akins for umbilical hernia evaluation and potential repair - Roselyn to call [facility] office to obtain a natomy scan results - Glucose test order provided - Follow up appointment in 4 weeks 10/11/24 -?-?-?-?-?-?-?-?-?-?-?-?- 26w 1d 97.296 kg 124/73 absent unknown 143 active 26w1d with fe rhiannon VSD noted on prior scan; FHR 143 bpm, 1hr GTT 102 (normal). Plan: echo and specialist US tomorrow; follow-up in 4 weeks; continue routine care; bring glucose result to appointment. 11/15/24 -?-?-?-?-?-?-?-?-?-?-?-?- 31w 1d 100.754 kg 97/57 absent cephalic 152 active - She was seen in triage last weekend for decreased movements where tracing was appropriate. - She has established care with [facility] for follow-up on ventricular septal defect (VSD). - She reports abdominal muscle soreness and asks about abdominal muscle separation during . - Attributes soreness to carrying her child all day while on maternity leave from work. - She tried using a support belt but r eports it did not help. - She has a follow-up appointment with Justin Carrillo scheduled for this Thursday. - She reports that everything is going well overall. Plan - Perform third trimester labs: CBC, RPR , and Tdap - Follow up in 2 weeks - Review results from Dr. Carrillo's ap pointment (scheduled for Thursday) 12/05/24 -?-?-?-?-?-?-?-?-?-?-?-?- 34w 0d 101.831 kg 107/73 occasional cephalic 1 53 active - She reports that her contractions have resolved since the last visit. - Patient was prescribed Procardia and c onfirms she received the prescription for uterine muscle relaxation to help with contractions. - She acknowledges understanding that th e medication can lower blood pressure and cause lightheadedness. - Patient was consuming hot chocolate during the visit. - Continue Procardia as prescribed for uterine muscle relaxation to help with contractions - Patient counseled on Procardia side ef fects including blood pressure lowering; advised to sit down when taking first doses and avoid driving to prevent lightheadedness - Follow up in 2 weeks - Cervical dilation check planned at nex t visit - Patient advised regarding caffeine con tent in hot chocolate ANKUR Calculator Estimated Delivery Date Method Current WG Current Estimate 01/16/25 Ultrasound #1 34w 0d Other Estimates 01/16/25 LMP (Uncertain) 34w 0d Office Procedures OBC Clinic LOC & Office Proc's Nursing/Assessment Patient Status: Established Patient OB Clinic Nursing Assessment: Medication Reconciliation, Update PMH in EMR and Vital Signs OB Clinic Coordination of Care: Complex Care and Chronic Disease 1-5, Education Complex Pt/Fam, Consent,records obtained, informed consent, Results/Orders obtained and Staff clarify orders Special Needs: Heart tones Established Patient Charge Established Patient Point Assignment: 125 Established Patient Point Charge: EP Level 4 (120-155) Assessment & Plan Diagnosis / Problem List (1) Breech presentation: Status: Acute (2) labor in third trimester: Status: Acute Plan Problem List - labor - at 34 weeks 0 days Assessment 34-week patient () presenting with contractions that have resolved without cervical changes, classified as false contractions. heart rate is normal at 153 bpm. Patient has been prescribed Procardia for uterine muscle relaxation to help with contractions, with noted side effect of potential hypotension. Plan - Continue Procardia as prescribed for uterine muscle relaxation to help with contractions - Patient counseled on Procardia side effects including blood pressure lowering; advised to sit down when taking first doses and avoid driving to prevent lightheadedness - Follow up in 2 weeks - Cervical dilation check planned at next visit - Patient advised regarding caffeine content in hot chocolate 1. Progress Reviewed gestational age (34 weeks 0 days), growth, and heart rate (153 bpm, normal). Planned frequent visits (every 2 weeks until 36 weeks, then weekly). 2. Instructed patient to monitor movements and report decreases immediately. 3. Testing Counseled on routine third-trimester labs per guidelines. Discussed potential need for ultrasound or monitoring based on risk factors. 4. Preeclampsia Precaution Educated on preeclampsia signs: severe headache, vision changes, right upper quadrant pain, sudden swelling. Advised urgent reporting of symptoms and discussed blood pressure monitoring if high risk. 5. Labor Precautions Reviewed labor signs: regular contractions, pelvic pressure, back pain, bleeding, or fluid leakage. Patient experiencing contractions without cervical c hange (false contractions). Prescribed Procardia for uterine muscle relaxation. Advised that intervention only possible with cervical change. Instructed to seek immediate care for these symptoms. 6. Lifestyle and Delivery Preparation Reinforced vitamins, nutrition, and safe activity. Counseled on caffeine intake (hot chocolate contains caffeine). Discussed plan, pain management, and . Advised on labor preparation (e.g., hospital bag) and expectations. 7. Psychosocial Support Assessed emotional well-being and offered resources for mental health or parenting support.
== END 2024-12-05 09:55 | disposition home or self-care (01) ==
LOC: HODSOBC 08:47
PROVIDERS: Supervising Provider Obstetrics & Gynecology; Visit Provider Obstetrics & Gynecology
DX: O09.893 Supervision of other high risk pregnancies, third trimester (principal); O32.1XX0 Maternal care for breech presentation, not applicable or unspecified; O60.03 Preterm labor without delivery, third trimester; Z3A.34 34 weeks gestation of pregnancy
CPT/HCPCS: 99214; G0463

== ENCOUNTER 2024-12-22 13:20 | Outpatient (AMB) | payer MEDICAID, SELFPAY ==
[2024-12-22 13:37] VITALS: BP 106/68; PULSE 90; RESP 18; TEMP 36.2; O2SAT 98; BMI 37.7
--- NOTE | 2024-12-22 13:37 | OBCLNT_ITS ---
Vital Signs 12/22/24 13:37 Height 1.65 m Height Method Stated Weight 102.682 kg Weight Measurement Method Standing Scale BMI 37.7 BP 106/68 Blood Pressure Source Automatic Cuff Blood Pressure Location Right Lower Arm Position Sitting Respiration 18 Pulse 90 Pulse Source Monitor Temp 97.2 F Temp Source Oral Pulse Oximetry (%) 98 Oxygen Delivery Method Room Air Allergies/Home Meds Allergies & Medications Allergies No Known Allergies Allergy (Verified 12/22/24 13:38) Medication Reconciliation vitamins no.45-iron-FA 28 mg iron-1 mg chewable tablet 1 tab PO QDAY 11/11/24 [History Confirmed 12/22/24] Intake Visit Data Collection New Patient or Established: Established Patient (seen at [facility] within 3 years) Reason for Visit:: obc Seen by Clinical Staff ONLY (RN/MA): 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 Do You Feel Safe at Home: Yes Authorities Contacted: N/A PCP or OBGYN visit in last 3 months: Yes Date of Last PCP or OBGYN visit: 12/15/24 Hx Now: Yes Are you currently on any form of Control: No Pain Present Currently: No Pain Scale Used: Wei-Iqbal/Numerical Pain scale:: 0 Smoking Status Smoking Status: Never smoker Immunizations Flu Vaccine in the Last 12 Months: No Flu Vaccine Exclusion Criteria: No Exclusion Criteria Questionnaires Covid-19 Vaccine Questionnaire Has patient been vacinated for Covid-19 Have you been vacinated for Covid-19: Yes PHQ-9 PHQ-2 Over the last 2 weeks, how often have you been bothered by any of the following problems? 1. Little interest or pleasure in doing things: not at all 2. Feeling down, depressed, or hopeless: not at all Total score: 0 PHQ-9 3. Trouble falling or staying asleep, or sleeping too much: Not at all 4. Feeling tired or having little energy: Not at all 5. Poor appetite or overeating: Not at all 6. Feeling bad about yourself - or that you are a failure or have let yourself or your family down: Not at all 7. Trouble concentrating on things, such as reading the newspaper or watching television: Not at all 8. Moving or speaking so slowly that other people could have noticed? - Or the o pposite - being so fidgety or restless that you have been moving around a lot more than usual: not at all 9. Thoughts that you would be better off or of hurting yourself in some way: Not at all Total score: 0 If you checked off any problems, how difficult have these problems made it for you to do your work, take care of things at home, or get along with other people?: not difficult at all Source: Developed by Drs. Urban Gardner, Julianne Jett, Jacob Lucero and colleagues, with an educational bruce from [employer]. 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 Past Medical History: No Hx Neurological Disorders, No Hx Hypothyroidism, No Hx Hyperthyroidism, No Hx Breast Cancer, No Hx Cardiac Disorders, No Hx Hypertension, No Hx Cancer, No Hx Blood Disorders, No Hx Anemia, No Hx Gastrointestinal Disorders, No Hx Renal Disease, No Hx Deep Vein Thrombosis, No Hx Diabetes Mellitus Type 1, No Hx Diabetes Mellitus Type 2, No Hx Tubal Liga tion, No Hx Hysterectomy and No Psychiatric Problems Care OB Visit Log OB Flowsheet Initial Weight: Not Recorded Date -?-?-?-?-?-?-?-?-?-?-?-?- EGA Weight BP Alb Glu CTX Pres Fundal ht FHR Mov Dilation Station Effacement Hx Notes Visit Note 07/12/24 -?-?-?-?-?-?-?-?-?-?-?-?- 13w 1d 92.646 kg 123/74 at 13w1d, presents for routine care. No complaints today. Reports good FM, no CTX/LOF/VB. Denies HYDE, VC, or epigastric pain. Patient is currently off work on FMLA until September. Requests Zofran for nausea. FHR 146 bpm. NIPT returned negative for trisomies, female fetus confirmed. All labs WNL. Plan: Zofran prescribed for nausea, to b e picked up at [facility]. Continue vitamins. Referred for anatomy scan at [facility] around 20 weeks. Routine follow-up in 4 weeks. Reviewed warning signs of labor and dietary recommendations to minimize GDM risk. Encouraged hydration, balanced meals, and rest. 08/09/24 -?-?-?-?-?-?-?-?-?--?-?-?- 17w 1d 93.667 kg 116/72 145 Tasha Gonzalez, ([email or web address]), presents for routine visit at 17 weeks gestation. Patient denies cramping, nausea, or abdo meli pain. Denies HYDE, VC, and epigastric pain. - Tasha Gonzalez is presenting [facility] at 17 weeks gestation. - She reports no significant issues or c oncerns: - Denies nausea, vomiting, or cramping - Patient states she has been doing pre tty well overall - Recent changes in employment status: - Has not returned to work at the [employer] as initially planned on the 4th - Patient and her partner decided she will be staying at home for now - Medication adherence: - Reports taking vitamins as prescribed Plan: - Complete AFP (alpha-fetoprotein) scree josie test - Schedule glucose tolerance test at 24 weeks gestation - Continue vitamins - Schedule 20-week anatomy ultrasound at [facility] - Follow-up visit in 4 weeks 09/06/24 -?-?-?-?-?-?-?-?-?-?-?-?- 21w 1d 95.311 kg 112/70 155 active No ac complaints. MFM coming up. Return in 4 weeks with 1hr GTT 09/09/24 -?-?-?-?-?-?-?-?-?-?-?-?- 21w 4d 95.481 kg 119/71 absent unknown 151 active at 21 weeks 4 days gestation presenting for routine care. Patient reports an umbilical hernia causing significant daily pain. heart rate auscultated at 151 bpm, within normal limits. Anatomy scan performed on the at [facility], with results indicating normal anatomy. AFP test was rejected due to prior genetic DNA testing. - Urgent c onsult with Dr. Akins for umbilical hernia evaluation and potential repair - Ros[facility] to [facility] to obtain [facility] results - Glucose test order provided - Follow up appointment in 4 weeks 10/11/24 -?-?-?-?-?-?-?-?-?-?-?-?- 26w 1d 97.296 kg 124/73 absent unknown 143 active 26w1d with VSD noted on prior scan; FHR 143 bpm, 1hr GTT 102 (normal). Plan: echo and specialist US tomorrow; follow-up in 4 weeks; continue routine care; bring glucose result to appointment. 11/15/24 -?-?-?-?-?-?-?-?-?-?-?-?- 31w 1d 100.754 kg 97/57 absent cephalic 152 active - She was seen in triage last weekend for decreased movements where tracing was appropriate. - She has established care with [facility] for follow-up on ventricular septal defect (VSD). - She reports abdominal muscle soreness and asks about abdominal muscle separation during . - Attributes soreness to carrying her child all day while on maternity leave from work. - She tried using a support belt but r eports it did not help. - She has a follow-up appointment with Justin Carrillo scheduled for this Thursday. - She reports that everything is going well overall. Plan - Perform third trimester labs: CBC, RPR , and Tdap - Follow up in 2 weeks - Review results from Dr. Carrillo's ap pointment (scheduled for Thursday) 12/05/24 -?-?-?-?-?-?-?-?-?-?-?-?- 34w 0d 101.831 kg 107/73 occasional cephalic 1 53 active - She reports that her contractions have resolved since the last visit. - Patient was prescribed Procardia and c onfirms she received the prescription for uterine muscle relaxation to help with contractions. - She acknowledges understanding that th e medication can lower blood pressure and cause lightheadedness. - Patient was consuming hot chocolate during the visit. - Continue Procardia as prescribed for uterine muscle relaxation to help with contractions - Patient counseled on Procardia side ef fects including blood pressure lowering; advised to sit down when taking first doses and avoid driving to prevent lightheadedness - Follow up in 2 weeks - Cervical dilation check planned at nex t visit - Patient advised regarding caffeine con tent in hot chocolate 12/15/24 -?-?-?-?-?-?-?-?-?-?-?-?- 35w 3d 101.321 kg 107/71 absent cephalic 145 active - She had an episode of labor for which she was transferred to a tertiary care hospital, but this has since subsided. - She reports no more contractions curre ntly. - She describes experiencing cramping li ke period cramping, which are identified as Schaller Bryant contractions. - She was checked for cervical dilation when she left the hospital and was told she was approximately one centimeter dilated. - Perform GBS (Group B Streptococcus) screening - Schedule weekly visits from n ow on - Continue monitoring for labor symptoms 12/22/24 -?-?-?-?-?-?-?-?-?-?-?-?- 36w 3d 102.682 kg 106/68 absent cephalic 140 active - She reports generalized discomfort and pain, particularly when carrying her baby. - Patient had a previous scare with pret erm labor that subsequently stalled out. - She denies current contractions. - Patient has been trying various method s to encourage labor onset including: - Bouncing on an exercise ball - Drinking raspberry leaf tea - Curb walking - She reports no contractions at this time. - Return next week for examination and membrane sweep - Continue current natural labor inducti on methods including exercise ball bouncing, raspberry leaf tea, and curb walking - Consider intercourse as prostaglandins in semen may help with cervical ripening ANKUR Calculator Estimated Delivery Date Method Current WG Current Estimate 01/16/25 Ultrasound #1 36w 4d Other Estimates 01/16/25 LMP (Uncertain) 36w 4d Office Procedures [facility] LOC & Office Proc's Nursing/Assessment Patient Status: Established Patient OB Clinic Nursing Assessment: Medication Reconciliation, Update PMH in EMR and Vital Signs OB Clinic Coordination of Care: Consent,records obtained, informed consent, Education Simp Pt/Fam, Lab and Imaging orders, Results/Orders obtained and Staff clarify orders Special Needs: Heart tones Established Patient Charge Established Patient Point Assignment: 110 Established Patient Point Charge: EP Level 3 (80-115) Assessment & Plan Diagnosis / Problem List (1) labor in third trimester: Status: Acute Plan Assessment 36 weeks and 3 days gestation with negative Group B Streptococcus screening. Patient reports generalized discomfort and pain, particularly when carrying her baby. History of labor scare that subsequently resolved. Patient is experiencing normal discomforts of late without active contractions. Plan - Return next week for examination and membrane sweep - Continue current natural labor induction methods including exercise ball bouncing, raspberry leaf tea, and curb walking - Consider intercourse as prostaglandins in semen may help with cervical ripening 1. Progress Reviewed gestational age at 36 weeks and 3 days, growth, and heart rate. Planned frequent visits (every 2 weeks until 36 weeks, then weekly). 2. Instructed patient to monitor movements and report decreases immediately. 3. Testing Counseled on routine third-trimester labs per guidelines. Group B strep testing completed with negative result. Discussed potential need for ultrasound or monitoring based on risk factors. 4. Preeclampsia Precaution Educated on preeclampsia signs: severe headache, vision changes, right upper quadrant pain, sudden swelling. Advised urgent reporting of symptoms and discussed blood pressure monitoring if high risk. 5. Labor Precautions Reviewed labor signs: regular contractions, pelvic pressure, back pain, bleeding, or fluid leakage. Patient had previous labor scare that resolved. Instructed to seek immediate care for these symptoms. 6. Lifestyle and Delivery Preparation Reinforced vitamins, nutrition, and safe activity. Discussed natural labor induction methods including exercise ball use, curb walking, and intimacy. Discussed plan, pain management, and . Advised on labor preparation (e.g., hospital bag) and expectations. 7. Psychosocial Support Assessed emotional well-being and offered resources for mental health or parenting support.
== END 2024-12-22 13:58 | disposition home or self-care (01) ==
LOC: HODSOBC 13:20
PROVIDERS: Supervising Provider Obstetrics & Gynecology; Visit Provider Obstetrics & Gynecology
DX: O09.893 Supervision of other high risk pregnancies, third trimester (principal); O60.03 Preterm labor without delivery, third trimester; Z3A.36 36 weeks gestation of pregnancy
CPT/HCPCS: 99213; G0463

== ENCOUNTER 2024-12-30 11:27 | Outpatient (AMB) | payer MEDICAID, SELFPAY ==
--- NOTE | 2024-12-30 11:38 | OBCLNT_ITS ---
Vital Signs 12/30/24 11:51 Height 1.65 m Height Method Stated Weight 104.44 kg Weight Measurement Method Standing Scale BMI 38.3 BP 105/68 Blood Pressure Source Automatic Cuff Blood Pressure Location Left Upper Arm Position Sitting Respiration 18 Pulse 88 Pulse Source Monitor Temp 97.2 F Temp Source Oral Pulse Oximetry (%) 98 Oxygen Delivery Method Room Air Allergies/Home Meds Allergies & Medications Allergies No Known Allergies Allergy (Verified 01/08/25 02:42) Medication Reconciliation vitamins no.45-iron-FA 28 mg iron-1 mg chewable tablet 1 tab PO QDAY 11/11/24 [History Confirmed 01/08/25] acetaminophen 325 mg tablet 650 mg (2 x 325 mg) PO Q4H PRN See Comments #30 tabs 01/09/25 [Rx] docusate sodium 100 mg capsule 100 mg PO BID #3 caps 01/09/25 [Rx] ibuprofen 400 mg tablet 800 mg (2 x 400 mg) PO Q8H PRN See Comments #30 tabs 01/09/25 [Rx] Immunizations Immunizations Flu Vaccine in the Last 12 Months: No Flu Vaccine Exclusion Criteria: No Exclusion Criteria Care OB Visit Log OB Flowsheet Initial Weight: Not Recorded Date -?-?-?-?-?-?-?-?-?-?-?-?- EGA Weight BP Alb Glu CTX Pres Fundal ht FHR Mov Dilation Station Effacement Hx Notes Visit Note 07/12/24 -?-?-?-?-?-?-?-?-?-?-?-?- 13w 1d 92.646 kg 123/74 at 13w1d, presents for routine care. No complaints today. Reports good FM, no CTX/LOF/VB. Denies HYDE, VC, or epigastric pain. Patient is currently off work on FMLA until September. Requests Zofran for nausea. FHR 146 bpm. NIPT returned negative for trisomies, female fetus confirmed. All labs WNL. Plan: Zofran prescribed for nausea, to b e picked up at [facility]. Continue vitamins. Referred for anatomy scan at [facility] around 20 weeks. Routine follow-up in 4 weeks. Reviewed warning signs of labor and dietary recommendations to minimize GDM risk. Encouraged hydration, balanced meals, and rest. 08/09/24 -?-?-?-?-?-?-?-?-?-?-?-?- 17w 1d 93.667 kg 116/72 145 Tasha Gonzalez, ([id number]), presents for routine visit at 17 weeks gestation. Patient denies cramping, nausea, or abdo meli pain. Denies HYDE, VC, and epigastric pain. - Tasha Gonzalez is presenting for a utine visit at 17 weeks gesta tion. - She reports no significant issues or c oncerns: - Denies nausea, vomiting, or cramping - Patient states she has been doing pre tty well overall - Recent changes in employment status: - Has not returned to work at the [employer] as initially planned on the - Patient and her partner decided she will be staying at home for now - Medication adherence: - Reports taking vitamins as prescribed Plan: - Complete AFP (alpha-fetoprotein) scree josie test - Schedule glucose tolerance test at 24 weeks gestation - Continue vitamins - Schedule 20-week anatomy ultrasound at [facility] - Follow-up visit in 4 weeks 09/06/24 -?-?-?-?-?-?-?-?-?-?-?-?- 21w 1d 95.311 kg 112/70 155 active No ac complaints. MFM coming up. Return in 4 weeks with 1hr GTT 09/09/24 -?-?-?-?-?-?-?-?-?-?-?-?- 21w 4d 95.481 kg 119/71 absent unknown 151 active at 21 weeks 4 days gestation presenting for routine care. Patient reports an umbilical hernia causing significant daily pain. heart rate auscultated at 151 bpm, within normal limits. Anatomy scan performed on the at [facility], with results indicating normal anatomy. AFP test was rejected due to prior genetic DNA testing. - Urgent c onsult with Dr. Akins for umbilical hernia evaluation and potential repair - Roselyn to call [place] office to obtain a natomy scan results - Glucose test order provided - Follow up appointment in 4 weeks 10/11/24 -?-?-?-?-?-?-?-?-?-?-?-?- 26w 1d 97.296 kg 124/73 absent unknown 143 active 26w1d with VSD noted on prior scan; FHR 143 bpm, 1hr GTT 102 (normal). Plan: echo and specialist US tomorrow; follow-up in 4 weeks; continue routine care; bring glucose result to appointment. 11/15/24 -?-?-?-?-?-?-?-?-?-?-?-?- 31w 1d 100.754 kg 97/57 absent cephalic 152 active - She was seen in triage last weekend for decreased movements where tracing was approp riate. - She has established care with [facility] for follow-up on ventricular septal defect (VSD). - She reports abdominal muscle soreness and asks about abdominal muscle separation during . - Attributes soreness to carrying her child all day while on maternity leave from work. - She tried using a support belt but r eports it did not help. - She has a follow-up appointment with Justin Carrillo scheduled for this Thursday. - She reports that everything is going well overall. Plan - Perform third trimester labs: CBC, RPR , and Tdap - Follow up in 2 weeks - Review results from Dr. Carrillo's ap pointment (scheduled for Thursday) 12/05/24 -?-?-?-?-?-?-?-?-?-?-?-?- 34w 0d 101.831 kg 107/73 occasional cephalic 1 53 active - She reports that her contractions have resolved since the last visit. - Patient was prescribed Procardia and c onfirms she received the prescription for uterine muscle relaxation to help with contractions. - She acknowledges understanding that th e medication can lower blood pressure and cause lightheadedness. - Patient was consuming hot chocolate during the visit. - Continue Procardia as prescribed for uterine muscle relaxation to help with contractions - Patient counseled on Procardia side ef fects including blood pressure lowering; advised to sit down when taking first doses and avoid driving to prevent lightheadedness - Follow up in 2 weeks - Cervical dilation check planned at nex t visit - Patient advised regarding caffeine con tent in hot chocolate 12/15/24 -?-?-?-?-?-?-?-?-?-?-?-?- 35w 3d 101.321 kg 107/71 absent cephalic 145 active - She had an episode of labor for which she was transferred to a tertiary care hospital, but this has since subsided. - She reports no more contractions curre ntly. - She describes experiencing cramping li ke period cramping, which are identified as Terry Bryant contractions. - She was checked for cervical dilation when she left the hospital and was told she was approximately one centimeter dilated. - Perform GBS (Group B Streptococcus) screening - Schedule weekly visits from n ow on - Continue monitoring for labor symptoms 12/22/24 -?-?-?-?-?-?-?-?-?-?-?-?- 36w 3d 102.682 kg 106/68 absent cephalic 140 active - She reports generalized discomfort and pain, particularly when carrying her baby. - Patient had a previous scare with pret erm labor that subsequently stalled out. - She denies current contractions. - Patient has been trying various method s to encourage labor onset including: - Bouncing on an exercise ball - Drinking raspberry leaf tea - Curb walking - She reports no contractions at this time. - Return next week for examination and membrane sweep - Continue current natural labor inducti on methods including exercise ball bouncing, raspberry leaf tea, and curb walking - Consider intercourse as prostaglandins in semen may help with cervical ripening 12/30/24 -?-?-?-?-?-?-?-?-?-?-?-?- 37w 4d 104.44 kg 105/68 absent cephalic 154 active - She reports experiencing a lot of pelvic pressure recently. - She denies being in labor currently. - She reports that everything hurts but attributes this to not eating for a prolonged period before the visit. - She notes decreased movement, wh ich she understands may be due to the baby running out of space. - She requests induction of labor at 39 weeks. - She requests membrane sweep during today's visit. - Schedule induction at 39 weeks - Perform membrane sweep today ANKUR Calculator Estimated Delivery Date Method Current WG Current Estimate 01/16/25 Ultrasound #1 42w 3d Other Estimates 01/16/25 LMP (Uncertain) 42w 3d Office Procedures [facility] Clinic LOC & Office Proc's Nursing/Assessment Patient Status: Established Patient OB Clinic Nursing Assessment: Medication Reconciliation, Update PMH in EMR and Vital Signs OB Clinic Coordination of Care: Consent,records obtained, informed consent, Education Simp Pt/Fam, Lab and Imaging orders, Results/Orders obtained and Staff clarify orders Special Needs: Heart tones Established Patient Charge Established Patient Point Assignment: 110 Established Patient Point Charge: EP Level 3 (80-115) Assessment & Plan Diagnosis / Problem List (1) Supervision of high risk in third trimester: Status: Acute (2) History of hemorrhage, currently in third trimester: Status: Acute Plan Assessment at 37 weeks 4 days gestation presenting for routine visit. Patient reports pelvic pressure, which is consistent with head engagement. GBS status was obtained at 36 weeks. heart rate is 154 bpm, which is within normal limits. Patient reports generalized discomfort attributed to advanced gestational age and dietary factors. Patient requests induction of labor at 39 weeks and membrane sweep at current visit. Plan - Schedule induction at 39 weeks - Perform membrane sweep today 1. Progress Reviewed gestational age at 37 weeks and 4 days, growth, and heart rate at 154 bpm which is normal. Patient experiencing pelvic pressure due to baby's head being low. Planned induction at 39 weeks per patient request. 2. Instructed patient to monitor movements and report decreases immediately. Patient noted decreased movement which is normal due to baby running out of space at this gestational age. 3. Testing GBS testing was completed at 36 weeks. Membrane sweep planned for today's visit. 4. Preeclampsia Precaution Educated on preeclampsia signs: severe headache, vision changes, right upper quadrant pain, sudden swelling. Advised urgent reporting of symptoms and discussed blood pressure monitoring if high risk. 5. Labor Precautions Reviewed labor signs: regular contractions, pelvic pressure, back pain, bleeding, or fluid leakage. Instructed to seek immediate care for these symptoms. 6. Lifestyle and Delivery Preparation Reinforced vitamins, nutrition, and safe activity. Discussed plan, pain management, and . Advised on labor preparation (e.g., hospital bag) and expectations. Induction scheduled for 39 weeks. 7. Psychosocial Support Assessed emotional well-being and offered resources for mental health or parenting support.
[2024-12-30 11:51] VITALS: BP 105/68; PULSE 88; RESP 18; TEMP 36.2; O2SAT 98; BMI 38.3
== END 2024-12-30 12:07 | disposition home or self-care (01) ==
LOC: HODSOBC 11:27
PROVIDERS: Supervising Provider Obstetrics & Gynecology; Visit Provider Obstetrics & Gynecology
DX: O09.293 Supervision of pregnancy with other poor reproductive or obstetric history, third trimester (principal); O09.893 Supervision of other high risk pregnancies, third trimester; O36.8130 Decreased fetal movements, third trimester, not applicable or unspecified; Z3A.37 37 weeks gestation of pregnancy
CPT/HCPCS: 99213; G0463

== ENCOUNTER 2025-01-08 01:17 | Inpatient (IN) | payer MEDICAID, SELFPAY ==
[2025-01-08] VITALS (74 sets, daily range): BP systolic 98–131; BP diastolic 54–79; PULSE 67–111; RESP 16–98; TEMP 36.6–37.7; O2SAT 85–100; BMI 38.6; BMI 38.7
[2025-01-08 02:03] LABS: Basophils # (Auto) 0.0 Thou/mm3 (0.0-0.2); Basophils % (Auto) 0 % (0-2.5); Eosinophils # (Auto) 0.1 Thou/mm3 (0.0-0.5); Eosinophils % (Auto) 1 % (0-10); Hematocrit 34.3 % (36.0-46.0); Hemoglobin 11.9 g/dL (12.0-16.0); Immature Granulocytes Auto 0.02 Thou/mm3 (0.00-0.00); Lymphocytes # (Auto) 2.0 Thou/mm3 (1.0-4.8); Lymphocytes % (Auto) 27 % (10-50); Mean Corpuscular HGB Conc 34.7 g/dl (31.0-37.0); Mean Corpuscular Hemoglobin 31.2 pg (25.0-35.0); Mean Corpuscular Volume 90 fL (80-100); Monocytes # (Auto) 0.7 Thou/mm3 (0.0-0.8); Monocytes % (Auto) 9 % (0-12); Neutrophils # (Auto) 4.7 Thou/mm3 (1.8-7.7); Neutrophils % (Auto) 63 % (37-80); Nucleated Red Blood Cell # 0.00 Thou/mm3 (0.00-0.00); Nucleated Red Blood Cell % 0 /100 WBC (0); Platelet Count 208 Thou/mm3 (140-440); RDW Standard Deviation 41.6 fL (36.4-46.3); Red Blood Count 3.82 Miln/mm3 (4.00-5.20); White Blood Count 7.5 Thou/mm3 (3.6-11.0)
[2025-01-08] MEDS: RINGERS LACTATED 1000 ML 1,000 ML 999 ML IV (02:10)
[2025-01-08 02:41] LABS: Syphilis Nonreactive (Nonreactive)
--- NOTE | 2025-01-08 02:47 | PD.LDHP ---
Documentation for date of: 01/08/25 OB Labor/Induct. HPI History of Present Illness Chief complaint: Active labor : 5 Para: 4 Term pregnancies: 3 pregnancies: 1 Living children: 4 History of Abortions: Spontaneous and Elective: 0 History of Vaginal deliveries: 4 History of sections: No History of : No ANKUR: 01/16/25 Gestational Age (weeks): 38 Gestational Age (days): 6 History of present illness: The patient is a 29-year-old -1-0-4 who presented to labor and delivery reporting ruptured membranes a little after midnight at 1230. She presented about 0130 the morning in labor 5 cm dilated. She has a history of vaginal delivery x 4 the last 1 with a hemorrhage. All her babies were in the 7-1/2 pound today at about 8 pound 13 ounce range. Her care is up-to-date with the [facility] and group B strep is negative. On admission she desired epidural. History of Present Adequate Care: No Ultrasounds: normal 1st trimester US Obstetrical complications: none Medical complications: none Labs Maternal Blood Type: O Pos Labs: Positive: Rubella Titre, Negative: RPR, Hepatitis B, HIV, Chlamydia, Gonorrhea and Group Beta Strep and Unknown: Herpes Type 1, Herpes Type 2 and Covid-19 Past Medical History Surgical History SURGICAL: Negative Section Past Medical History Comments PMH COMMENT: Patient has been umbilical hernia that needs to be repaired History of vaginal livery x 4 1 with a hemorrhage Meds Home Medications and Allergies Home Medications ?Medication ?Instructions ?Recorded ?Confirmed ?Type vitamins no.45-iron-FA 28 1 tab PO QDAY 11/11/24 01/08/25 History mg iron-1 mg chewable tablet Allergies Allergy/AdvReac Type Severity Reaction Status Date / Time No Known Allergies Allergy Verified 01/08/25 02:42 OB Exam Physical Exam Vital signs: Temp Pulse Resp BP Pulse Ox 98.7 F 91 18 122/62 90 L 01/08/25 01:26 01/08/25 02:44 01/08/25 01:33 01/08/25 02:44 01/08/25 02:40 Detailed Labor and Delivery Exam Dilation (cm): 5 Effacement (%): 90 Cervix position: mid station: -1 Consistency: soft Presentation: Vertex Membranes: ruptured Amniotic fluid: clear monitor accelerations: 15x15 monitor decelerations: None Contraction frequency (min): every 2 minutes Tachysystole: No Contraction intensity: Moderate OB Results Labs 01/08/25 01:40 Labs: Short CBC 01/08/25 Range/Units 01:40 WBC 7.5 (3.6-11.0) Thou/mm3 Hgb 11.9 L (12.0-16.0) g/dL Hct 34.3 L (36.0-46.0) % Plt Count 208 (140-440) Thou/mm3 OB Assessment & Plan Assessment and Plan (1) Supervision of high risk in third trimester: Status: Acute Assessment and plan: Patient admitted and had epidural placed. Anticipate (2) History of hemorrhage, currently in third trimester: Status: Acute Assessment and plan: Admit patient. 2 units of PRBC on hold. 2 IV lines. Additional Plan Induction method: none Plan: anticipate NVD
[2025-01-08] MEDS: OXYTOCIN in NS 20 units 20 UNIT/1,000 ML BAG 999 UNIT IV (03:17)
[2025-01-08] MEDS: BENZO/LANO/ALOE (Dermoplast) 60 GM CAN 1 SPRAY TOP (03:50)
--- NOTE | 2025-01-08 06:32 | PD.LDDELS ---
Data ([place]) Data Hx Section: No : 5 Term: 3 : 1 Livin Abortions: Spontaneous & Theraputic: 0 Delivery Data ([place]) Labor Data Initiation of labor: Spontaneous Induction/Augmentation Agent: None ROM date: 01/08/25 ROM time: 00:30 Amniotic membrane rupture type: Spontaneous Amniotic fluid description: Clear and Blood Tinged Delivery Data EDC: 01/16/25 EDC calculated by:: LMP/early US confirmation Date of arrival to unit: 01/07/25 Onset of labor date: 01/08/25 Onset of labor time: 01:00 Complete dilation date: 01/08/25 Complete dilation time: 03:07 Sweet delivery date: 01/08/25 delivery time: 03:14 Gestational age (weeks): 38 Gestational age (days): 6 Placenta delivery date: 01/08/25 Placenta delivery time: 03:22 Stage 1 total time: Labor - Stage 1 Duration 2 hours and 7 minutes Delivered by: [facility]alie [facility] ([facility]) [facility]: Luda Marion RN Superintendent Plant Protection at delivery: No Support person(s) at delivery: [place] (father of baby/significant other) Delivery Method Delivery method: Normal Vaginal Delivery Presentation: Vertex position: OA Anesthesia Type Anesthesia Type: Epidural Delivery Room Medications Delivery room medications: Pitocin 20 u IV Placenta Placenta delivery description: Spontaneous Cord blood sent to lab: Yes cord blood collection: Cord Blood Type Episiotomy Episiotomy description: None Lacerations #1: Perineal: 1st degree Perineal repair Sutures used for repair: 4.0 Chromic EBL Estimated blood loss (ml): 300 Umbilical Cord cord description: 3 Vessels Additional Procedures The patient presented 5 cm in labor had epidural placed and rapidly progressed to complete not long after admission. She was complete at 0307 and pushed through 2-3 contractions delivering a liveborn female at 0314. Findings: liveborn female in the FAHAD presentation with no nuchal cord or meconium. Apgars were 9 and 9. Weight was 9 pounds 2 ounces. As the baby was vigorous at ,she was placed directly on mother's chest and delayed cord clamping was performed for a total of 3 minutes. The baby then stayed on mom's chest after the cord was clamped and cut. The placenta delivered at 0322 complete ,spontaneous, grossly normal. Patient sustained a first-degree perineal laceration repaired in a standard fashion using 4-0 chromic. Complications were none. Condition both mom and were in a stable condition delivery. EBL was 300 cc. Complications Complications: None Data ([place]) Data order: 1 's gender: Female Identification band number: [id number] weight (gms): 4139.03 g 1 minute: 9 5 minutes: 9
[2025-01-08] MEDS: DOCUSATE SOD 100 MG CAPSULE PO ×2 (09:03→20:23)
[2025-01-08] MEDS: PRENATAL VITAMIN/FE FUM/FA TABLET 1 TAB PO (09:03)
[2025-01-08 10:08] LABS: Basophils # (Auto) 0.0 Thou/mm3 (0.0-0.2); Basophils % (Auto) 0 % (0-2.5); Eosinophils # (Auto) 0.0 Thou/mm3 (0.0-0.5); Eosinophils % (Auto) 0 % (0-10); Hematocrit 29.5 % (36.0-46.0); Hemoglobin 10.0 g/dL (12.0-16.0); Immature Granulocytes Auto 0.03 Thou/mm3 (0.00-0.00); Lymphocytes # (Auto) 1.7 Thou/mm3 (1.0-4.8); Lymphocytes % (Auto) 15 % (10-50); Mean Corpuscular HGB Conc 33.9 g/dl (31.0-37.0); Mean Corpuscular Hemoglobin 30.8 pg (25.0-35.0); Mean Corpuscular Volume 91 fL (80-100); Monocytes # (Auto) 0.9 Thou/mm3 (0.0-0.8); Monocytes % (Auto) 8 % (0-12); Neutrophils # (Auto) 8.6 Thou/mm3 (1.8-7.7); Neutrophils % (Auto) 76 % (37-80); Nucleated Red Blood Cell # 0.00 Thou/mm3 (0.00-0.00); Nucleated Red Blood Cell % 0 /100 WBC (0); Platelet Count 180 Thou/mm3 (140-440); RDW Standard Deviation 42.1 fL (36.4-46.3); Red Blood Count 3.25 Miln/mm3 (4.00-5.20); White Blood Count 11.3 Thou/mm3 (3.6-11.0)
[2025-01-08] MEDS: IBUPROFEN TAB 400 MG TABLET 800 MG PO (17:30)
[2025-01-09] MEDS: IBUPROFEN TAB 400 MG TABLET 800 MG PO (03:47)
[2025-01-09 03:51] VITALS: BP 103/65; PULSE 67; RESP 18; TEMP 36.7; O2SAT 97
[2025-01-09 07:15] VITALS: BP 99/63; PULSE 58; RESP 17; TEMP 36.7; O2SAT 97
[2025-01-09 08:13] LABS: Basophils # (Auto) 0.1 Thou/mm3 (0.0-0.2); Basophils % (Auto) 1 % (0-2.5); Eosinophils # (Auto) 0.1 Thou/mm3 (0.0-0.5); Eosinophils % (Auto) 1 % (0-10); Hematocrit 32.1 % (36.0-46.0); Hemoglobin 10.8 g/dL (12.0-16.0); Immature Granulocytes Auto 0.03 Thou/mm3 (0.00-0.00); Lymphocytes # (Auto) 2.8 Thou/mm3 (1.0-4.8); Lymphocytes % (Auto) 33 % (10-50); Mean Corpuscular HGB Conc 33.6 g/dl (31.0-37.0); Mean Corpuscular Hemoglobin 31.5 pg (25.0-35.0); Mean Corpuscular Volume 94 fL (80-100); Monocytes # (Auto) 0.5 Thou/mm3 (0.0-0.8); Monocytes % (Auto) 6 % (0-12); Neutrophils # (Auto) 5.1 Thou/mm3 (1.8-7.7); Neutrophils % (Auto) 59 % (37-80); Nucleated Red Blood Cell # 0.00 Thou/mm3 (0.00-0.00); Nucleated Red Blood Cell % 0 /100 WBC (0); Platelet Count 194 Thou/mm3 (140-440); RDW Standard Deviation 44.6 fL (36.4-46.3); Red Blood Count 3.43 Miln/mm3 (4.00-5.20); White Blood Count 8.6 Thou/mm3 (3.6-11.0)
[2025-01-09] MEDS: PRENATAL VITAMIN/FE FUM/FA TABLET 1 TAB PO (08:16)
[2025-01-09] MEDS: DOCUSATE SOD 100 MG CAPSULE PO (08:16)
--- NOTE | 2025-01-09 09:36 | ESPR_ITS ---
Subjective Subjective Interval history: The patient is a 29-year-old G5 now [id number] day #1 status post vaginal delivery 01/08/2025 around 3:15 in the morning. This morning, the patient is resting comfortably. She is bottlefeeding in the hospital and would like to pump her breastmilk at home and would like a home energy consultant supervisor. She is passing flatus, tolerating a general diet, and voiding without difficulty. Her bleeding is minimal. Her predelivery hemoglobin was 11.9. Her postdelivery hemoglobin is 10. The patient had a small first-degree perineal laceration repaired with a couple of [id number] sutures. She did get an epidural but went very quickly in labor. The plan is for her to have a vasectomy for contraception. She sees Dr. Puente in the office and is going to see a surgeon for repair of an umbilical hernia in the future. The patient will be discharged home today. She is only taking Tylenol and ibuprofen for pain. Exam Vital Signs Temp Pulse Resp BP Pulse Ox O2 Del Method 98.0 F 58 L 17 99/63 97 Room Air 01/09/25 07:15 01/09/25 07:15 01/09/25 07:15 01/09/25 07:15 01/09/25 07:15 01/09/25 07:15 Narrative Exam Patient is alert and orient x 3 in no apparent distress. Her fundus is firm nontender 2 cm below umbilicus. Extremities showed no significant edema and no erythema. Objective Labs 01/09/25 07:43 Labs: Laboratory Results - last 24 hr 01/08/25 01/09/25 09:52 07:43 WBC 11.3 H D 8.6 RBC 3.25 L 3.43 L Hgb 10.0 L 10.8 L Hct 29.5 L 32.1 L MCV 91 94 MCH 30.8 31.5 MCHC 33.9 33.6 RDW Std Deviation 42.1 44.6 Plt Count 180 194 Neut % (Auto) 76 59 Lymph % (Auto) [address] [place] % (Auto) 8 6 Eos % (Auto) 0 1 Baso % (Auto) 0 1 Neut # (Auto) 8.6 H 5.1 Lymph # (Auto) 1.[address] [place] # (Auto) 0.9 H 0.5 Eos # (Auto) 0.0 0.1 Baso # (Auto) 0.0 0.1 Immature Gran # (Auto) 0.03 H 0.03 H Absolute Nucleated RBC 0.00 0.00 Immature Gran % 0 0 Nucleated RBC % 0 0 Assessment & Plan Problem List (1) care following vaginal delivery: Problem details: Discharge home day #1 in stable condition. Discharge instructions included no intercourse tampons douching or swimming pools x 6 weeks. Follow-up in the clinic in 2 weeks. Status: Acute Time Spent With Patient Time: Total time spent is greater than 50% in coordination of care (as documented) at patient's floor/unit and/or counseling patient: Time with patient: less than 15 minutes
--- NOTE | 2025-01-09 09:50 | ESDS_ITS ---
DS: Providers Provider Date of admission: 01/08/25 02:03 Primary care physician: Physician No Primary/Family Admitting Provider: Rosalie [facility] MD ([facility]) Attending Provider on Admission: Saniya Melo CNM Consults: 01/08/25 03:33 Referral Routine Comment: Attending Provider on DC: Rosalie Morse MD ([facility]) Discharging Provider: Rosalie Morse MD ([facility]) Anticipated date of discharge: 01/09/25 DS: Diagnosis Discharge Diagnosis (1) care following vaginal delivery: Status: Acute Assessment & Plan: Discharge home day #1 in stable condition. Discharge instructions given. Problem List Completed Was Problem List Reviewed/Reconciled?: Yes Summary/Hosp Course Brief History: The patient is a 29-year-old -1-0-4 who presented to labor and delivery reporting ruptured membranes a little after midnight at 1230. She presented about 0130 the morning in labor 5 cm dilated. She has a history of vaginal delivery x 4 the last 1 with a hemorrhage. All her babies were in the 7-1/2 pound today at about 8 pound 13 ounce range. Her care is up-to-date with the [facility] and group B strep is negative. On admission she desired epidural. Patient was admitted by Dr Morse 01/08/2025. Please see history and physical for further details. Hospital course: Patient underwent an uncomplicated vaginal delivery about 3:00 in the morning 01/08/2025. Please see delivery note for further details Post day #1 patient was voiding tolerating a general diet and ambulating. Her bleeding was minimal. Her pain was under control. Patient was discharged home day #1 in stable condition. Peripartum Data Delivery Method: Normal Vaginal Delivery Episiotomy Description: None Laceration Description: see Delivery Summary complications: none Status at Discharge Functional status at discharge: independent ambulation Overall status at discharge: patient is progressing back to baseline Time Spent with Patient Time attestation: Total time spent providing and/or coordinating discharge services: Time spent: Less than 30 minutes Specific discharge activities: Pelvic rest x 6 weeks Exam Vital Signs Temp Pulse Resp BP Pulse Ox O2 Del Method 98.0 F 58 L 17 99/63 97 Room Air 01/09/25 07:15 01/09/25 07:15 01/09/25 07:15 01/09/25 07:15 01/09/25 07:15 01/09/25 07:15 Narrative Exam Patient is alert and orient x 3. Fundus firm at umbilicus and nontender. Extremities show no significant edema or erythema. Discharge Plan Plan Patient Disposition: HOME (Self Care) Disposition Comment: Stable Patient condition on transfer: Stable Prescriptions/Referrals Prescriptions/Med Rec: New acetaminophen 325 mg Tablet 650 mg PO Q4H PRN (Reason: See Comments) Qty: 30 0RF ibuprofen 400 mg Tablet 800 mg PO Q8H PRN (Reason: See Comments) Qty: 30 0RF docusate sodium 100 mg Capsule 100 mg PO BID Qty: 3 0RF No Action vitamin no.45-iron-FA 28 mg iron- 1 mg tablet,chewable 1 tab PO QDAY Referrals: No Primary/Family,Physician [Primary Care Provider] Patient/Caregiver Discharge Instructions Discharge Activity: activity as tolerated Other Discharge Activity Instructions:: Pelvic rest x 6 weeks Other Discharge Diet Instructions: General diet as tolerated Education Materials: Expressing Your Milk, After Delivery Concerns, Delivery After Stay Fit Print Language: [place] Activity Restrictions/Additional Instructions: Pelvic rest x 6 weeks. No intercourse, tampons, douching, or bathtubs x 6 weeks. Stand Alone Forms: [facility] Award Info., Patient Portal Info Letter Discharge Order Discharge Orders: Discharge (Routine); Ordered 01/09/25 Ordered By: Rosalie Morse ([facility]) Planned Discharge Date 01/09/25
== END 2025-01-09 13:46 | disposition home or self-care (01) | DRG 560 ==
LOC: S4SX 05:27 → S4NX 06:00
PROVIDERS: Admitting Provider Obstetrics & Gynecology; Visit Provider Advanced Practice Midwife
DX: O70.0 First degree perineal laceration during delivery (principal); Z37.0 Single live birth; Z3A.38 38 weeks gestation of pregnancy
CPT/HCPCS: 36415; 59025; 59409; 85025; 86780; 86850; 86900; 86901; 86923; 94762; J2590; J2795; J3010; J7120; A9270